=== PATIENT | female | born 1940 | race Caucasian/White ===

== ENCOUNTER → 2016-12-08 | Outpatient (CLI) | payer MEDICARE ==
[~2016-12-08] MED LIST: ASPIRIN81 M1 PO; ATIVAN0.5 MG PO; AZITHROMYCIN250 MG PO; Altace5 MG PO; CLOPIDOGREL75 MG PO; COMBIVENT1 AR1 IH; EFFEXOR75 MG PO; LASIX20 MG PO; LOPRESSOR25 MG PO; MEDROL DOSEPAK4 MG PO; MIRALAX17 GM/DOSE PO; NEXIUM20 MG PO; NEXIUM40 MG PO; NORVASC5 MG PO; RAMIPRIL10 MG PO; SLOW FE45 MG PO; SLOW RELEASE IR50 MG PO; SYMBICORT1 AER INH; TOPROL XL25 MG PO; VENLAFAXINE HYD75 M3 PO; VYTORIN 10 MG-21 TA1 PO; VYTORIN 10 MG-21 TA2 PO
== END | disposition home or self-care (01) ==
LOC: CT 15:51
DX: J43.9 Emphysema, unspecified (principal); K44.9 Diaphragmatic hernia without obstruction or gangrene; I70.0 Atherosclerosis of aorta; M47.896 Other spondylosis, lumbar region; M41.86 Other forms of scoliosis, lumbar region; Z87.891 Personal history of nicotine dependence; Z95.5 Presence of coronary angioplasty implant and graft; Z90.49 Acquired absence of other specified parts of digestive tract

== ENCOUNTER → 2016-12-09 | Outpatient (CLI) | payer MEDICARE ==
[2016-12-09 11:36] LABS: BASO % 0.6 % (0.0-1.0); EOS # 0.3 10*3/uL (0.0-0.4); EOS % 5.4 % (1.0-4.0); HEMATOCRIT 31.5 % (37.0-47.0); HEMOGLOBIN 9.7 g/dl (12.0-16.0); LYMPH # 0.9 10*3/uL (1.3-4.4); MEAN CELL VOLUME 83.1 fl (81.0-99.0); MEAN CORPUSCULAR HGB 25.6 pg (27.0-31.0); MEAN CORPUSCULAR HGB CONC 30.8 g/dl (33.0-37.0); MEAN PLATELET VOLUME 9.6 fl (9.6-12.3); MONO # 0.5 10*3/uL (0.1-1.0); NEUT # 3.3 10*3/uL (2.3-7.9); NEUT % 65.6 % (47.0-73.0); PLATELET COUNT AUTOMATED 310 10*3/uL (130-400); RED BLOOD COUNT 3.79 10*6/uL (4.10-5.10); RED CELL DISTRI WIDTH 14.4 % (0-14.5)
[2016-12-09 12:14] LABS: ALBUMIN 3.3 gm/dl (3.1-4.5); ALKALINE PHOSPHATASE 102 U/L (45-117); BILIRUBIN, TOTAL 0.1 mg/dl (0.2-1.0); BUN 12 mg/dl (7-24); CARBON DIOXIDE 27 mmol/L (21-32); CHLORIDE 104 mmol/L (98-107); CHOLESTEROL 173 mg/dL (<200); EST GLOM FILT AFRICAN AMERICAN > 60 ml/min; GLUCOSE 100 mg/dL (65-99); HDL CHOLESTEROL 69 mg/dl (40-60); LDL CHOLESTEROL 83 mg/dL (9-159); SGOT/AST 11 IU/L (3-35); SGPT/ALT 18 U/L (12-78); SODIUM 139 mmol/L (136-145); TOTAL PROTEIN 6.6 gm/dL (6.4-8.2); TRIGLYCERIDES 103 mg/dl (<150); VLDL CHOLESTEROL 21 mg/dL (6-40)
== END | disposition home or self-care (01) ==
LOC: LAB 11:09
PROVIDERS: Internal Medicine
DX: I10 Essential (primary) hypertension (principal); R53.83 Other fatigue; E55.9 Vitamin D deficiency, unspecified

== ENCOUNTER 2016-12-15 14:18 | Inpatient (IN) | payer MEDICARE ==
[~2016-12-15] VITALS: Ht 152.4 cm; Wt 97.2 kg
--- NOTE | ~2016-12-15 | CON ---
[place], [place] REPORT OF CONSULTATION NAME: EKVON MENDOZA [facility] #: [id number] UNIT #: [id number] ROOM: 512 DOCTOR: BRITTANIE AMEZCUA MDSAMINA BIRTHDATE: [birth year] DOS: 12/22/2016 PULMONARY CONSULTATION, EVALUATION AND MANAGEMENT REASON FOR CONSULTATION: The consultation done for this patient for assessment of ongoing symptoms of shortness of breath assessment. HISTORY OF PRESENT ILLNESS: This is a 76-year-old white female who has been unknown to me from the past. The patient has been admitted under the care of the hospitalist service for chronic shortness of breath that was present for over 3 months. The symptoms worsened for this patient about 4 or 5 days prior to admission to the hospital. The patient's symptoms are also associated coughing at times with occasional sputum expectoration. The patient denies any symptoms of chest pain. She does have symptoms of wheezing intermittently as well. The patient has been admitted to the hospital since 12/15/2016. Cardiac workup was done for this patient for the assessment and management of current symptoms. The patient denies any symptoms of hemoptysis. She does complain of symptoms of tightness in the chest. REVIEW OF SYSTEMS: CONSTITUTIONAL: The patient rather denies symptoms of fever or chills. She does have symptoms of fatigue. Denies symptoms of fever or chills or any abnormal weight loss. EYES: Denies any burning, dryness, redness or discharge. ENT: No sore throat, hoarseness, otalgia, postnasal drainage. CARDIOVASCULAR: Denies anginal pain, edema or pain of the lower extremities. GASTROINTESTINAL: Denies dysphagia, nausea, vomiting, diarrhea, abdominal pain, hematemesis, melena, or hematochezia. GENITOURINARY: Denies dysuria, suprapubic pain, hematuria. MUSCULOSKELETAL: Denies acute joint pain, redness, or tenderness. SKIN: No lesions or rashes. CENTRAL NERVOUS SYSTEM: Denies dizziness, headache, diplopia, seizures or tingling sensation of the extremities. Remaining systems were reviewed with the patient, they were noted all negative. PAST MEDICAL HISTORY: 1. Reported as history of chronic obstructive pulmonary disease. 2. Coronary artery disease. 3. Chronic depression. 4. Hyperlipidemia. 5. Essential hypertension. PAST SURGICAL HISTORY: 1. Cataract extraction with lens implantation bilaterally. 2. Cholecystectomy. 3. Cardiac catheterization and coronary artery stent insertion. 4. Complete hysterectomy. SOCIAL HISTORY: The patient stated she is , has 2 children. Denies [place], [place] REPORT OF CONSULTATION NAME: KEVON MENDOZA UNIT #: [id number] ROOM: [facility] DOCTOR: SAMINA SOLIS MD BIRTHDATE: [birth year] history of alcohol or illicit drug use. Tobacco use noted since earlier age, 2 pack of cigarettes per day that was discontinued approximately in 2006. FAMILY HISTORY: Both parents have been , issue related to heart problem. Further details were not known by the patient. HOME MEDICATIONS: Noted use of Norvasc, aspirin, Symbicort, vitamin D3, Plavix, Colace, Xaria, Lasix, DuoNeb, iron pills, lorazepam, lovastatin, metoprolol tartrate, omeprazole, ramipril, tramadol, and Effexor. DRUG ALLERGIES: Reported allergy; 1. NIACIN. 2. PREVACID. 3. TOLNAFTATE. PHYSICAL EXAMINATION: GENERAL: This is a 76-year-old white female who has been currently sitting on the side of the bed without any distress at the time of the assessment. VITAL SIGNS: Her height was recorded by the nursing staff at the time of admission with height of 5 feet, weight was 97 kg, BMI 39.8. Vital signs showed the temperature of the patient noted normal in the last 3 days, respiratory rate range between 18-20, heart rate 64-68, blood pressure 120/76 to 118/67. Pulse oxygen saturation on 2 liters nasal cannula 98% saturation recorded. HEENT: Moderate severe obesity. Head was atraumatic. Eyes nonicterus. Decreased posterior pharyngeal space was noted with high tongue base and crowding of soft tissue structures. CARDIOVASCULAR: S1, S2 audible. LUNGS: Noted with general reduction in the breath sounds without any active wheezing or crackles at the present time. ABDOMEN: Soft, obese, nontender. EXTREMITIES: The patient showed no edema at the present time. CENTRAL NERVOUS SYSTEM: Cranial nerves 2-12 intact. No focal deficit. MUSCULOSKELETAL: No joint pain or deformities. SKIN: Does not show any lesions or rashes. LABORATORY DATA: The patient's CBC on admission of 12/15/2016, hemoglobin 9.2, hematocrit 29.0 and platelet count were normal. WBC count was normal. The BMP of the patient on 12/15/2016 normal BUN and creatinine for this patient. ProBNP 17,862. Troponin was noted 0.087. Ultrasound of the bilateral lower extremity was also done on 12/15/2016, evidence of severe peripheral vascular disease was described. Further assessment of CT angiogram rather was advised. The second set of CK-MB, troponin of patient shows troponin 0.079. Normal CK and MB. The other repeated set on 12/19/2016 shows CPK 0.060. CBC on 12/19/2016 shows anemia, otherwise CBC remains normal. BMP of the patient that was done on 12/19/2016 shows normal BUN and creatinine. CBC that was done this morning shows hemoglobin 9.7, hematocrit 32.5, platelet count were normal. WBC count was normal. BMP of patient yesterday still shows normal BUN and creatinine and the other electrolytes. The chest x-ray that was done on admission 12/15/2016 shows hyperinflation without any acute pulmonary infiltration. Chest x-ray repeated again on 12/17/2016, shows the same findings. A 2-view chest x-ray of [place], [place] REPORT OF CONSULTATION NAME: KEVON MENDOZA UNIT #: [id number] ROOM: 512 DOCTOR: BRITTANIE AMEZCUA MD,[facility] BIRTHDATE: [birth year] the patient on 12/21/2016, shows similar finding without any acute abnormal pulmonary process. CT scan of the chest that was also completed previously 12/08/2016, was reviewed, shows evidence of small area of atelectasis, which was present in the right middle lobe as well as in the right upper lobe. There was no acute other abnormalities in the lungs such as abnormal lung masses or nodules. The echocardiogram for the patient, which was done on 12/15/2016, shows evidence of [id number] mitral valve regurgitation. The patient normal left ventricular ejection fraction 55%. Lexiscan shows abnormal ischemic findings, which were described with reversible ischemia involving the anterior and apical for this patient with reed-infarction ischemia. Low normal overall left ventricular ejection fraction was also noted. IMPRESSION: 1. The patient has been currently admitted to the hospital and noted with symptoms of shortness of breath with finding consistent with acute congestive heart failure with diastolic dysfunction. 2. Coronary artery disease. Ischemia for this patient was noted in the myocardium with the stress testing for this patient significance was unknown for this patient. The patient was also noted with finding of cwav-yw-jypgtold mitral valve regurgitation as well. Congestive heart failure would be considered diastolic dysfunction for this patient as well. 3. The patient with chronic obstructive pulmonary disease with acute exacerbation with gradual resolution. The patient ____ small areas of subsegmental atelectasis was noted in the right middle and the right upper lobe related to the possibility of mucus impaction. 4. Severe peripheral vascular disease. 5. The patient was noted with significant tobacco abuse in the past, which were discontinued 10 years ago. 6. Small pleural fluid was also described in the chest x-ray that may be related to the underlying congestive heart failure. PLAN OF TREATMENT: The patient continued to be managed with oral antibiotics, bronchodilators, oxygen supplementation, corticosteroids. Continue to maximize the cardiac management as well. Consider possible discharge home for this patient and when desired oral medication such as tapering prednisone, antibiotics and further outpatient assessment to make any further adjustments in medications of the respiratory problems accordingly. The patient already using the oxygen supplementation at bed time that should be continued. Current body habitus is strongly suggestive of obstructive sleep apnea disorder that should be assessed as an outpatient, a sleep evaluation. Thanks for allowing me to participate in the care of this patient. [place], [place] REPORT OF CONSULTATION NAME: KEVON MENDOZA UNIT #: [id number] ROOM: 512 DOCTOR: SAMINA SOLIS MD BIRTHDATE: [birth year] SAMINA GU MD CM:CONSTR:REPORT OF CONSULTATION 1034 12/23/16 0620 interface
--- NOTE | ~2016-12-15 | PR ---
[place], [place] PROGRESS NOTE NAME: KEVON MENDOZA UNIT #: [id number] ROOM: 512 DOCTOR: MAXIME MADRID MD BIRTHDATE: [birth year] DOS: 12/17/2016 CARDIOLOGY PROGRESS NOTE SUBJECTIVE: The patient was seen at her bedside today, 12/17/2016, for followup of dyspnea and possible heart failure. She is a 76-year-old woman with chronic dyspnea who states that she developed worsening in her chronic shortness of breath in the last several days. She does admit that she has gained about 20 pounds in the last 3-4 months. In the hospital, she was diuresed and her fluid balance is negative by about 3 liters since admission. Nonetheless, she still feels dyspneic. PAST HISTORY: Includes: 1. Coronary artery disease, status post 2 stents in the past. 2. Former cigarette abuse. 3. Chronic obstructive pulmonary disease. 4. History of hyperlipidemia. 5. History of essential hypertension. PHYSICAL EXAMINATION: GENERAL: Today, she is an overweight white female who is awake, alert and oriented. VITAL SIGNS: Pulse is 60 and regular, blood pressure is 125/63. She is afebrile. NECK: Supple. She has no jugular distention or hepatojugular reflux. Carotids are full. LUNGS: Respirations are slightly labored at rest. She does have expiratory prolongation with scattered wheezes bilaterally. HEART: Regular rhythm with an S4 gallop. Heart tones are distant. ABDOMEN: Soft and normoactive. EXTREMITIES: Showed no edema. LABORATORY DATA: I agreed that she probably was somewhat fluid overloaded on admission, but she appears to be euvolemic now. Her continued shortness of breath, most likely is due to an exacerbation of her underlying lung disease. I would treat her more aggressively for her lung problem. Given her history of coronary artery disease, we will still plan on doing a pharmacologic stress test on 12/19/2016 if she is still in the hospital at that time. I thank the hospitalist group for asking our advice regarding her care. [place], [place] PROGRESS NOTE NAME: KEVON MENDOZA UNIT #: [id number] ROOM: 512 DOCTOR: MAXIME MADRID MD BIRTHDATE: [birth year] MAXIME MADRID MD CM:PNEFREM [id number] [phone] MAXIME MADRID MD 12/17/162210 interface
--- NOTE | ~2016-12-15 | PR ---
[place], [place] PROGRESS NOTE NAME: KEVON MENDOZA UNIT #: [id number] ROOM: 512 DOCTOR: MAXIME MADRID MD BIRTHDATE: [birth year] DOS: 12/22/2016 CARDIOLOGY PROGRESS NOTE SUBJECTIVE: The patient was seen at her bedside today, 12/22/2016 for Cardiology followup. She tells me she still feels poorly. She has a minimally productive cough and some shortness of breath. She was seen by Pulmonary yesterday and their recommendations are pending. Currently, she is on antibiotics and bronchodilators along with her diuretics and cardiac medications. PHYSICAL EXAMINATION: VITAL SIGNS: Today, her pulse is 60 and regular, blood pressure is 120/73. She is afebrile. She weighs 97.2 kilograms with a body mass index of 41.8. HEENT: Normocephalic, atraumatic. Extraocular muscles are intact. Sclerae are clear. Pupils are equal, round and react to light. NECK: Supple. She has no jugular distention or hepatojugular reflux. Carotids are full. LUNGS: Respirations are unlabored. She does have a few scattered wheezes, especially anteriorly. She has no rales, presacral edema or chest wall tenderness. HEART: Has a regular rhythm with an S4 gallop, but no S3. She has a grade 2/6 systolic ejection murmur along the left sternal border. No diastolic murmurs are present. ABDOMEN: Obese, but otherwise benign. EXTREMITIES: Showed no edema. IMPRESSION: 1. Atherosclerotic heart disease. 2. Pharmacologic stress test, 12/19/2016 showed an apical infarction with reed-infarction ischemia, ejection fraction 52%. 3. Hypertension. 4. Hyperlipidemia. 5. Chronic obstructive pulmonary disease. PLAN: She appears to be euvolemic from a cardiac standpoint. We have determined that her ischemia should be managed medically. She is being managed also by the hospitalist and electronic publishing specialist for her respiratory problems. We will continue to follow her while she is in the hospital. I thank the hospitalist physicians for asking our advice regarding her care. [place], [place] PROGRESS NOTE NAME: KEVON MENDOZA UNIT #: [id number] ROOM: 512 DOCTOR: MAXIME MADRID MD BIRTHDATE: [birth year] MAXIME MADRID MD CM:PNTRANS [id number] MAXIME MADRID MD 12/23/16 0150 interface
--- NOTE | ~2016-12-15 | PR ---
[place], [place] PROGRESS NOTE NAME: KEVON MENDOZA [facility] #: [id number] UNIT #: [id number] ROOM: 512 DOCTOR: CLIFF RAMOS DO BIRTHDATE: [birth year] DOS: 12/19/2016 SUBJECTIVE: The patient was seen and evaluated on 12/19/2016. At this time, she has no new complaints. She states her breathing continues to improve; however, is not at baseline. She denies chest pain. She denies nausea or vomiting. No other new complaints. OBJECTIVE: VITAL SIGNS: Temperature is 98.0, pulse 86, respirations 18, blood pressure 146/60, pulse ox 98%. GENERAL: The patient is alert and oriented x 3, no acute distress. LUNGS: Diminished bilaterally, but clear. HEART: Regular rate and rhythm. ABDOMEN: Soft, nontender, nondistended. EXTREMITIES: No edema. ASSESSMENT: 1. Dyspnea on exertion. 2. Mild acute chronic obstructive pulmonary disease exacerbation. 3. Acute diastolic heart failure. This is resolving. 4. Echocardiogram on 12/15/2016 measured a normal ejection fraction. 5. Coronary artery disease with history of stent in the past. 6. Hypertension. 7. Hyperlipidemia. 8. Anxiety. 9. Ex-smoker. 10. History of throat cancer. PLAN: Continue current treatment with steroids and aerosol treatments. Continue Lasix. Stress test was done today. The nuclear portion of the test is pending. The patient will be kept again tonight. Possible discharge planning for tomorrow depending on the results of the stress test. CLIFF RAMOS DO CM:PNTRANS [id number] CLIFF RAMOS DO 12/19/16 1643 interface
--- NOTE | ~2016-12-15 | ST ---
[place], [place] EXERCISE STRESS TEST REPORT NAME[facility]: [id number] UNIT #: [id number] ROOM: 512 DOCTOR: MAXIME MADRID MD BIRTHDATE: [birth year] DOS: 12/19/2016 INDICATIONS: Dyspnea, history of coronary artery disease. PROCEDURE: The patient was given a rapid infusion of regadenoson 0.4 mg intravenously followed by a saline flush. She experienced dyspnea, but had no chest pain. The resting electrocardiogram showed sinus rhythm with PACs and PVCs. She had nonspecific T-wave flattening. With the infusion, no diagnostic changes occurred. Her resting heart rate of 82 chevy to 94. The resting blood pressure 116/68 fell to 114/64. Symptoms resolved spontaneously. Radionuclide was administered after the infusion of regadenoson. IMPRESSION: 1. Well tolerated infusion of regadenoson. 2. Radionuclide administered. Please see the separately created imaging report for further details of the patient's stress test results. MAXIME MADRID MD CM:STRESS:EXERCISE STRESS TEST REPORT [id number] MAXIME MADRID MD
--- NOTE | ~2016-12-15 | PR ---
[place], [place] PROGRESS NOTE NAME: KEVON MENDOZA UNIT #: [id number] ROOM: 512 DOCTOR: MAXIME MADRID MD BIRTHDATE: [birth year] DOS: 12/18/2016 SUBJECTIVE: The patient was seen at her bedside today, 12/18/2016, for followup of her dyspnea and possible heart failure. She states that despite the fact that she is urinating freely, she has continued to gain weight. Her breathlessness has not improved despite the fact that she is also now on Solu-Medrol and inhaled bronchodilators. She does admit that she has gained about 20 pounds in the last 3-4 months, but diuresis in the hospital has not yet given her substantial relief. PAST MEDICAL HISTORY: Includes; 1. Coronary artery disease, status post 2 stents in the past. 2. Former cigarette abuse. 3. Chronic obstructive pulmonary disease. 4. History of hyperlipidemia. 5. History of essential hypertension. PHYSICAL EXAMINATION: GENERAL: She is an overweight white female who is awake, alert and oriented. VITAL SIGNS: Pulse is 64 and regular, blood pressure is 126/60. She weighs 98.2 kg and has a body mass index of 42.3. NECK: Supple. She has mild jugular distention with hepatojugular reflux. Carotids are full. LUNGS: Respirations are unlabored at rest, but she does have decreased breath sounds at the bases with expiratory prolongation with scattered wheezes bilaterally, especially anteriorly. HEART: Regular rhythm with an S4 gallop. Heart tones are distant. There is no obvious murmur. ABDOMEN: Obese, but otherwise benign, without masses, organomegaly or bruits. EXTREMITIES: Showed no significant edema. IMPRESSION: 1. Dyspnea, etiology to be determined. This could represent heart failure, angina equivalent, obstructive lung disease, or combination of all 3. 2. History of essential hypertension. 3. History of hyperlipidemia. 4. Previous coronary artery disease. PLAN: I will increase her diuretics overnight. We will plan on doing a pharmacologic stress test tomorrow morning. Further management strategies will depend upon the results of her stress test. [place], [place] PROGRESS NOTE NAME: KEVON MENDOZA UNIT #: [id number] ROOM: 512 DOCTOR: MAXIME MADRID MD BIRTHDATE: [birth year] MAXIME MADRID MD CM:PNTRANS [id number] MAXIME MADRID MD 12/18/162235 interface
--- NOTE | ~2016-12-15 | PR ---
[place], [place] PROGRESS NOTE NAME: [facility]END[facility]ZA [id number] UNIT #: [id number] ROOM: 512 DOCTOR: MAXIME MADRID MD BIRTHDATE: [birth year] DOS: 12/19/2016 SUBJECTIVE: The patient was seen in the Cardiology Department today on 12/19/2016 just prior to a pharmacologic stress test. She was diuresed overnight, but continues to have significant breathlessness. She desaturates when she is removed from supplemental oxygen. She has no chest pain. PHYSICAL EXAMINATION: VITAL SIGNS: Her pulse is 86 and regular with an occasional premature beat, blood pressure 146/60. She is afebrile. She weighs 99 kilograms with a body mass index of 42.6. NECK: Supple. She has no jugular venous distention. CHEST: Clear with decreased breath sounds at the bases. HEART: Has a regular rhythm with an S4 gallop. Heart tones are distant. ABDOMEN: Obese. EXTREMITIES: Showed no edema. LABORATORY DATA: Her monitor today shows sinus rhythm with frequent PACs and PVCs. Overnight, she did have a 14-beat run of wide complex tachycardia. I could not determine if this was supraventricular tachycardia with aberrancy or ventricular tachycardia based on the images available. IMPRESSION: 1. Dyspnea, etiology to be determined. Differential diagnosis includes heart failure, angina equivalent, obstructive lung disease, or combination of the above. 2. History of essential hypertension, currently in good control. 3. History of hyperlipidemia. 4. Previously documented coronary artery disease. PLAN: The patient will undergo a pharmacologic myocardial perfusion study today. Further recommendations depend upon the results of her testing. MAXIME MADRID MD CM:PNTRANS [id number] MAXIME MADRID MD 12/19/16 1028 interface
[2016-12-15 14:22] VITALS: BP 106/60
[2016-12-15] MEDS ORDERED: AMLODIPINE BESYL5 MG PO (14:27)
[2016-12-15] MEDS ORDERED: LASIX20 MG PO (14:28)
[2016-12-15] MEDS ORDERED: COMBIVENT RESPIM4 GM INH (14:28)
[2016-12-15] MEDS ORDERED: ASPIRIN81 M1 PO (14:28)
[2016-12-15] MEDS ORDERED: LORAZEPAM0.5 MG PO (14:29)
[2016-12-15] MEDS ORDERED: TOPROL XL25 MG PO (14:29)
[2016-12-15] MEDS ORDERED: ZETIA10 MG PO (14:29)
[2016-12-15] MEDS ORDERED: ALTOPREV20 MG PO (14:29)
[2016-12-15] MEDS ORDERED: SYMBICORT1 AER INH (14:30)
[2016-12-15] MEDS ORDERED: PLAVIX75 M1 PO (14:30)
[2016-12-15] MEDS ORDERED: OMEPRAZOLE40 MG PO (14:30)
[2016-12-15] MEDS ORDERED: ALTACE10 MG PO (14:30)
[2016-12-15] MEDS ORDERED: ULTRAM50 MG PO (14:31)
[2016-12-15] MEDS ORDERED: DOC-Q-LACE100 MG PO (14:31)
[2016-12-15] MEDS ORDERED: VITAMIN D-32000 UNI1 PO (14:31)
[2016-12-15] MEDS ORDERED: VENLAFAXINE75 M1 PO (14:32)
[2016-12-15] MEDS ORDERED: IRON90 MG PO (14:32)
[2016-12-15 15:02] LABS: BASO % 0.4 % (0.0-1.0); EOS # 0.2 10*3/uL (0.0-0.4); HEMATOCRIT 29.8 % (37.0-47.0); HEMOGLOBIN 9.2 g/dl (12.0-16.0); LYMPH # 1.5 10*3/uL (1.3-4.4); LYMPH % 19.5 % (27.0-41.0); MEAN CELL VOLUME 82.8 fl (81.0-99.0); MEAN CORPUSCULAR HGB 25.6 pg (27.0-31.0); MEAN CORPUSCULAR HGB CONC 30.9 g/dl (33.0-37.0); MEAN PLATELET VOLUME 9.7 fl (9.6-12.3); MONO # 1.2 10*3/uL (0.1-1.0); MONO % 15.5 % (3.0-9.0); NEUT # 4.7 10*3/uL (2.3-7.9); NEUT % 61.1 % (47.0-73.0); PLATELET COUNT AUTOMATED 311 10*3/uL (130-400); WHITE BLOOD COUNT 7.7 10*3/uL (4.8-10.8)
[2016-12-15 15:22] LABS: BUN 14 mg/dl (7-24); CARBON DIOXIDE 27 mmol/L (21-32); CHLORIDE 103 mmol/L (98-107); EST GLOM FILT AFRICAN AMERICAN > 60 ml/min; GLUCOSE 89 mg/dL (65-99); POTASSIUM 4.4 mmol/L (3.5-5.1); SODIUM 136 mmol/L (136-145)
[2016-12-15 15:26] LABS: TROPONIN I 0.087 ng/ml (<0.045)
[2016-12-15 16:11] VITALS: BP 154/61
[2016-12-15 16:47] VITALS: BP 147/52
[2016-12-15 17:50] VITALS: BP 139/50
[2016-12-15 18:32] VITALS: BP 139/50
[2016-12-15 18:37] LABS: CKMB 1.7 ng/ml (0.5-3.6)
[2016-12-15 18:45] LABS: TROPONIN I 0.079 ng/ml (<0.045)
[2016-12-15 20:42] VITALS: BP 145/54
[2016-12-16 00:27] VITALS: BP 127/54
[2016-12-16 00:40] LABS: CKMB 1.5 ng/ml (0.5-3.6)
[2016-12-16 00:43] LABS: TROPONIN I 0.07 ng/ml (<0.045)
[2016-12-16 06:28] LABS: CKMB 1.7 ng/ml (0.5-3.6)
[2016-12-16 06:30] LABS: TROPONIN I 0.06 ng/ml (<0.045)
[2016-12-16 06:37] LABS: BASO % 0.6 % (0.0-1.0); EOS # 0.3 10*3/uL (0.0-0.4); EOS % 4.3 % (1.0-4.0); HEMOGLOBIN 8.9 g/dl (12.0-16.0); LYMPH # 1.4 10*3/uL (1.3-4.4); LYMPH % 19.5 % (27.0-41.0); MEAN CELL VOLUME 82.9 fl (81.0-99.0); MEAN CORPUSCULAR HGB 25.4 pg (27.0-31.0); MEAN CORPUSCULAR HGB CONC 30.7 g/dl (33.0-37.0); MEAN PLATELET VOLUME 10.3 fl (9.6-12.3); MONO % 13.7 % (3.0-9.0); NEUT # 4.3 10*3/uL (2.3-7.9); NEUT % 61.3 % (47.0-73.0); PLATELET COUNT AUTOMATED 302 10*3/uL (130-400)
[2016-12-16 06:40] LABS: ALBUMIN 3.2 gm/dl (3.1-4.5); BILIRUBIN, TOTAL 0.2 mg/dl (0.2-1.0); BUN 11 mg/dl (7-24); CARBON DIOXIDE 26 mmol/L (21-32); CHLORIDE 103 mmol/L (98-107); EST GLOM FILT AFRICAN AMERICAN > 60 ml/min; FREE T4 1.03 ng/dl (0.76-1.46); GLUCOSE 94 mg/dL (65-99); MAGNESIUM 2.2 mg/dL (1.5-2.1); PHOSPHOROUS 3.5 mg/dL (2.5-4.9); POTASSIUM 4.3 mmol/L (3.5-5.1); SGOT/AST 16 IU/L (3-35); SGPT/ALT 17 U/L (12-78); SODIUM 138 mmol/L (136-145); TOTAL PROTEIN 6.3 gm/dL (6.4-8.2)
[2016-12-16 06:44] LABS: PROTHROMBIN TIME 10.1 SECONDS (9.0-12.4)
[2016-12-16 06:47] LABS: ALKALINE PHOSPHATASE 88 U/L (45-117)
[2016-12-16 07:44] LABS: VITAMIN D, 25-HYDROXY 51.2 ng/mL (30-100)
[2016-12-16 07:45] LABS: FOLIC ACID > 24.00 ng/mL (>5.38)
[2016-12-16 08:00] VITALS: BP 138/56
[2016-12-16 12:00] VITALS: BP 126/50
[2016-12-16 16:00] VITALS: BP 133/53
[2016-12-16 20:00] VITALS: BP 143/93
[2016-12-17] VITALS: BP 136/53
[2016-12-17 06:31] LABS: BASO % 0.6 % (0.0-1.0); EOS # 0.3 10*3/uL (0.0-0.4); EOS % 4.4 % (1.0-4.0); HEMATOCRIT 30.4 % (37.0-47.0); HEMOGLOBIN 9.3 g/dl (12.0-16.0); LYMPH # 1.2 10*3/uL (1.3-4.4); LYMPH % 16.7 % (27.0-41.0); MEAN CELL VOLUME 82.4 fl (81.0-99.0); MEAN CORPUSCULAR HGB 25.2 pg (27.0-31.0); MEAN CORPUSCULAR HGB CONC 30.6 g/dl (33.0-37.0); MEAN PLATELET VOLUME 10.1 fl (9.6-12.3); MONO % 13.7 % (3.0-9.0); NEUT # 4.5 10*3/uL (2.3-7.9); NEUT % 64.2 % (47.0-73.0); PLATELET COUNT AUTOMATED 291 10*3/uL (130-400); RED BLOOD COUNT 3.69 10*6/uL (4.10-5.10); RED CELL DISTRI WIDTH 15.5 % (0-14.5)
[2016-12-17 07:00] LABS: BUN 10 mg/dl (7-24); CARBON DIOXIDE 29 mmol/L (21-32); CHLORIDE 103 mmol/L (98-107); EST GLOM FILT AFRICAN AMERICAN > 60 ml/min; GLUCOSE 97 mg/dL (65-99); POTASSIUM 4.5 mmol/L (3.5-5.1); SODIUM 138 mmol/L (136-145)
[2016-12-17 08:00] VITALS: BP 144/60
[2016-12-17 12:00] VITALS: BP 130/66
[2016-12-17 16:00] VITALS: BP 125/63
[2016-12-17 20:00] VITALS: BP 137/52
[2016-12-18 00:13] VITALS: BP 145/56
[2016-12-18 06:07] LABS: BASO % 0.4 % (0.0-1.0); EOS # 0.2 10*3/uL (0.0-0.4); EOS % 3.2 % (1.0-4.0); HEMATOCRIT 28.5 % (37.0-47.0); HEMOGLOBIN 8.8 g/dl (12.0-16.0); LYMPH # 1.1 10*3/uL (1.3-4.4); LYMPH % 15.4 % (27.0-41.0); MEAN CELL VOLUME 82.8 fl (81.0-99.0); MEAN CORPUSCULAR HGB 25.6 pg (27.0-31.0); MEAN CORPUSCULAR HGB CONC 30.9 g/dl (33.0-37.0); MEAN PLATELET VOLUME 10.4 fl (9.6-12.3); MONO # 0.9 10*3/uL (0.1-1.0); MONO % 12.6 % (3.0-9.0); NEUT # 4.9 10*3/uL (2.3-7.9); NEUT % 68.1 % (47.0-73.0); PLATELET COUNT AUTOMATED 271 10*3/uL (130-400); RED BLOOD COUNT 3.44 10*6/uL (4.10-5.10); RED CELL DISTRI WIDTH 15.9 % (0-14.5); WHITE BLOOD COUNT 7.2 10*3/uL (4.8-10.8)
[2016-12-18 06:30] LABS: BUN 9 mg/dl (7-24); CARBON DIOXIDE 27 mmol/L (21-32); CHLORIDE 101 mmol/L (98-107); EST GLOM FILT AFRICAN AMERICAN > 60 ml/min; GLUCOSE 94 mg/dL (65-99); POTASSIUM 4.2 mmol/L (3.5-5.1); SODIUM 135 mmol/L (136-145)
[2016-12-18 08:00] VITALS: BP 118/58
[2016-12-18 12:00] VITALS: BP 123/66
[2016-12-18 16:00] VITALS: BP 126/60
[2016-12-18 20:00] VITALS: BP 146/68
[2016-12-19 00:19] VITALS: BP 132/50
[2016-12-19 06:30] LABS: BASO % 0.1 % (0.0-1.0); HEMATOCRIT 29.3 % (37.0-47.0); HEMOGLOBIN 9.2 g/dl (12.0-16.0); IG # 0.1 10*3/uL (0.0-0.1); LYMPH # 0.8 10*3/uL (1.3-4.4); LYMPH % 11.1 % (27.0-41.0); MEAN CELL VOLUME 82.8 fl (81.0-99.0); MEAN CORPUSCULAR HGB CONC 31.4 g/dl (33.0-37.0); MEAN PLATELET VOLUME 10.2 fl (9.6-12.3); MONO # 0.9 10*3/uL (0.1-1.0); MONO % 11.5 % (3.0-9.0); NEUT # 5.8 10*3/uL (2.3-7.9); NEUT % 76.5 % (47.0-73.0); PLATELET COUNT AUTOMATED 318 10*3/uL (130-400); RED BLOOD COUNT 3.54 10*6/uL (4.10-5.10); WHITE BLOOD COUNT 7.6 10*3/uL (4.8-10.8)
[2016-12-19 07:02] LABS: BUN 13 mg/dl (7-24); CARBON DIOXIDE 30 mmol/L (21-32); CHLORIDE 98 mmol/L (98-107); EST GLOM FILT AFRICAN AMERICAN > 60 ml/min; GLUCOSE 109 mg/dL (65-99); POTASSIUM 4.8 mmol/L (3.5-5.1); SODIUM 134 mmol/L (136-145)
[2016-12-19 08:00] VITALS: BP 146/60
[2016-12-19 12:00] VITALS: BP 136/72
[2016-12-19 16:00] VITALS: BP 130/55
[2016-12-19 20:00] VITALS: BP 120/71
[2016-12-20 00:12] VITALS: BP 126/64; BP 162/86
[2016-12-20 06:15] LABS: BASO % 0.1 % (0.0-1.0); HEMATOCRIT 31.7 % (37.0-47.0); HEMOGLOBIN 9.7 g/dl (12.0-16.0); IG # 0.1 10*3/uL (0.0-0.1); LYMPH # 0.9 10*3/uL (1.3-4.4); LYMPH % 9.7 % (27.0-41.0); MEAN CELL VOLUME 84.5 fl (81.0-99.0); MEAN CORPUSCULAR HGB 25.9 pg (27.0-31.0); MEAN CORPUSCULAR HGB CONC 30.6 g/dl (33.0-37.0); MEAN PLATELET VOLUME 10.4 fl (9.6-12.3); MONO # 0.8 10*3/uL (0.1-1.0); MONO % 8.9 % (3.0-9.0); NEUT # 7.5 10*3/uL (2.3-7.9); NEUT % 80.6 % (47.0-73.0); PLATELET COUNT AUTOMATED 358 10*3/uL (130-400); RED BLOOD COUNT 3.75 10*6/uL (4.10-5.10); RED CELL DISTRI WIDTH 16.4 % (0-14.5); WHITE BLOOD COUNT 9.4 10*3/uL (4.8-10.8)
[2016-12-20 06:46] LABS: ALBUMIN 3.6 gm/dl (3.1-4.5); BILIRUBIN, TOTAL 0.2 mg/dl (0.2-1.0); MAGNESIUM 2.7 mg/dL (1.5-2.1); POTASSIUM 4.5 mmol/L (3.5-5.1)
[2016-12-20 08:00] VITALS: BP 124/60
[2016-12-20 12:00] VITALS: BP 142/68
[2016-12-20 16:00] VITALS: BP 123/46
[2016-12-20 20:00] VITALS: BP 118/62
[2016-12-21] VITALS: BP 108/68
[2016-12-21 08:00] VITALS: BP 122/72
[2016-12-21 08:22] LABS: BUN 22 mg/dl (7-24); CARBON DIOXIDE 29 mmol/L (21-32); CHLORIDE 98 mmol/L (98-107); EST GLOM FILT AFRICAN AMERICAN > 60 ml/min; GLUCOSE 70 mg/dL (65-99); POTASSIUM 4.2 mmol/L (3.5-5.1); SODIUM 138 mmol/L (136-145)
[2016-12-21 12:00] VITALS: BP 123/59
[2016-12-21 16:00] VITALS: BP 151/63
[2016-12-21 20:00] VITALS: BP 118/61
[2016-12-22] VITALS: BP 118/67
[2016-12-22 07:15] LABS: BASO % 0.1 % (0.0-1.0); EOS # 0.2 10*3/uL (0.0-0.4); EOS % 2.8 % (1.0-4.0); HEMATOCRIT 32.5 % (37.0-47.0); HEMOGLOBIN 9.7 g/dl (12.0-16.0); LYMPH # 1.9 10*3/uL (1.3-4.4); LYMPH % 21.3 % (27.0-41.0); MEAN CELL VOLUME 84.2 fl (81.0-99.0); MEAN CORPUSCULAR HGB 25.1 pg (27.0-31.0); MEAN CORPUSCULAR HGB CONC 29.8 g/dl (33.0-37.0); MEAN PLATELET VOLUME 10.6 fl (9.6-12.3); MONO # 1.1 10*3/uL (0.1-1.0); NEUT # 5.4 10*3/uL (2.3-7.9); NEUT % 62.3 % (47.0-73.0); PLATELET COUNT AUTOMATED 312 10*3/uL (130-400); RED BLOOD COUNT 3.86 10*6/uL (4.10-5.10); WHITE BLOOD COUNT 8.7 10*3/uL (4.8-10.8)
[2016-12-22 07:31] LABS: ALBUMIN 3.3 gm/dl (3.1-4.5); BUN 21 mg/dl (7-24); CARBON DIOXIDE 35 mmol/L (21-32); CHLORIDE 98 mmol/L (98-107); EST GLOM FILT AFRICAN AMERICAN > 60 ml/min; GLUCOSE 84 mg/dL (65-99); MAGNESIUM 2.8 mg/dL (1.5-2.1); SGOT/AST 50 IU/L (3-35); SGPT/ALT 106 U/L (12-78)
[2016-12-22 07:33] LABS: ALKALINE PHOSPHATASE 88 U/L (45-117); BILIRUBIN, TOTAL 0.2 mg/dl (0.2-1.0); TOTAL PROTEIN 6.3 gm/dL (6.4-8.2)
[2016-12-22 07:39] LABS: POTASSIUM 4.3 mmol/L (3.5-5.1); SODIUM 135 mmol/L (136-145)
[2016-12-22 08:00] VITALS: BP 120/73
[2016-12-22 12:00] VITALS: BP 132/68
[2016-12-22] MEDS ORDERED: SLOW RELEASE I159 MG PO (13:22)
[2016-12-22] MEDS ORDERED: SIMVASTATIN80 MG PO (13:22)
[2016-12-22] MEDS ORDERED: TEMAZEPAM15 M1 PO (13:22)
[2016-12-22] MEDS ORDERED: FUROSEMIDE40 MG PO (13:22)
[2016-12-22] MEDS ORDERED: Zestril,Prinivi40 MG PO (13:22)
[2016-12-22] MEDS ORDERED: PREDNISONE10 MG PO (13:22)
[2016-12-22] MEDS ORDERED: AVPAK AZITHROM250 M1 PO (13:22)
== END 2016-12-22 15:22 | disposition home health service (06) | DRG 291 ==
LOC: ED 14:18 → 5E 16:05 → EDHOLD 16:05 → 5E 16:30
PROVIDERS: Emergency Medicine; Internal Medicine; Internal Medicine Cardiovascular Disease
DX: I11.0 Hypertensive heart disease with heart failure (principal); J18.9 Pneumonia, unspecified organism; E44.0 Moderate protein-calorie malnutrition; D64.9 Anemia, unspecified; R00.1 Bradycardia, unspecified; I73.9 Peripheral vascular disease, unspecified; J44.1 Chronic obstructive pulmonary disease with (acute) exacerbation; J44.0 Chronic obstructive pulmonary disease with (acute) lower respiratory infection; I50.33 Acute on chronic diastolic (congestive) heart failure; I25.10 Atherosclerotic heart disease of native coronary artery without angina pectoris; F32.9 Major depressive disorder, single episode, unspecified; E78.5 Hyperlipidemia, unspecified; F41.9 Anxiety disorder, unspecified; K59.00 Constipation, unspecified; E66.01 Morbid (severe) obesity due to excess calories; Z79.82 Long term (current) use of aspirin; Z79.899 Other long term (current) drug therapy; Z88.8 Allergy status to other drugs, medicaments and biological substances; Z90.710 Acquired absence of both cervix and uterus; Z90.49 Acquired absence of other specified parts of digestive tract; Z82.49 Family history of ischemic heart disease and other diseases of the circulatory system; Z83.6 Family history of other diseases of the respiratory system; Z82.3 Family history of stroke; Z72.89 Other problems related to lifestyle; Z85.89 Personal history of malignant neoplasm of other organs and systems; Z87.891 Personal history of nicotine dependence; Z98.42 Cataract extraction status, left eye; Z98.41 Cataract extraction status, right eye; Z68.39 Body mass index [BMI] 39.0-39.9, adult

== ENCOUNTER 2017-01-04 15:25 | Inpatient (IN) | payer MEDICARE ==
[2017-01-04] VITALS (7 sets, daily range): BP systolic 71–140; BP diastolic 44–61
[~2017-01-04] VITALS: Ht 152.4 cm; Wt 90.3 kg
--- NOTE | ~2017-01-04 | PR ---
[place], [place] PROGRESS NOTE NAME: KEVON MENDOZA [facility] #: [id number] UNIT #: [id number] ROOM: 404 DOCTOR: MAXIME MADRID MD BIRTHDATE: [birth year] DOS: 01/07/2017 CARDIOLOGY PROGRESS NOTE SUBJECTIVE: The patient was seen at her bedside today, January 07, 2017, for followup of her atherosclerotic heart disease. She is a 76-year-old woman who was recently hospitalized with a non-ST elevation myocardial infarction. A post-event risk stratifying myocardial perfusion study on December 19, 2016, showed an apical myocardial infarction with a small area of distal anterior periinfarction ischemia. The study was felt to be abnormal, but fairly low risk and therefore she was managed medically. She presents to the hospital on this occasion with an acute upper GI bleed with an acute renal injury. She was found at the same time to have a mild elevation in troponin along with a dramatic change in her electrocardiographic findings with evidence for acute anterior and lateral ischemia or a non-ST elevation myocardial infarction. The patient's symptoms have since resolved. Her upper endoscopy showed only gastritis and she is being treated for this. I am still quite concerned about the fact that she did have significant EKG changes and an elevation in her troponin and I feel that further cardiac evaluation with catheterization is appropriate. I have discussed this with the patient and her daughter. Today, the patient feels very well. She wondered if she still needed to consider catheterization at this time. OBJECTIVE: VITAL SIGNS: On exam today, her pulse is 72 and regular, blood pressure 122/48. She is afebrile. She weighs 90.3 kilograms with a body mass index of 38.9. HEENT: Normocephalic and atraumatic. Extraocular muscles are intact. Sclerae are clear. Pupils are equal, round and react to light. The oral mucosa is moist. Tongue is midline. NECK: Supple. She has no jugular distention. Carotids are full. LUNGS: Respirations are unlabored. I heard no wheezes or rales. She had no presacral edema or chest wall tenderness. HEART: Had a regular rhythm. She had a fourth heart sound, but no third heart sound. ABDOMEN: Soft and normally active. It is nontender. EXTREMITIES: Showed no edema. Peripheral pulses were palpable in the feet. IMPRESSIONS: 1. An acute gastritis with nausea, vomiting and melanotic stools. The patient has stabilized and no severe bleeding site has been found. The patient does have gastritis. 2. Acute renal injury. This has improved since admission. Creatinine today is back at baseline at 0.97. 3. Recurrent non-ST elevation myocardial infarction 1 month after unstable angina/non-ST elevation CA in November of 2016. Her electrocardiogram now shows deep symmetric T-wave inversions in the anterolateral leads suggesting ongoing ischemia. PLAN: Since the patient is stabilizing from a GI and renal point of view, I [place], [place] PROGRESS NOTE NAME: KEVON MENDOZA UNIT #: [id number] ROOM: 404 DOCTOR: MAXIME MADRID MD BIRTHDATE: [birth year] think that we should strongly consider doing a heart catheterization. For now, we are treating her medically. In the morning, we will repeat her EKG. If it remains abnormal, I will suggest that she undergo catheterization. She has had her previous studies done at the [facility] and therefore she has requested that we transfer her there for further management, if catheterization is still indicated. We thank the hospitalist physicians for asking our advice regarding her care. MAXIME MADRID MD CM:PNTRANS [id number] MAXIME MADRID MD 01/08/17 0754 interface
--- NOTE | ~2017-01-04 | EKG ---
[place], [place] ELECTROCARDIOGRAM REPORT NAME: KEVON MENDOZA UNIT #: [id number] ROOM: [facility] DOCTOR: JULIUS ASHFORD,MAXIME BIRTHDATE: [birth year] DOS: 01/04/2017 TIME: 1538. FINDINGS: Normal sinus rhythm at rate of 65 with short runs of SVT, deep symmetric T-wave inversions in leads 1, 2, aVL and V3 through V6 consistent with anterolateral ischemia. Abnormal electrocardiogram. MAXIME MADRID MD CM:EKGRPT:ELECTROCARDIOGRAM REPORT [id number] MAXIME MADRID MD
--- NOTE | ~2017-01-04 | PR ---
[place], [place] PROGRESS NOTE NAME: KEVON MENDOZA [facility] #: [id number] UNIT #: [id number] [facility] DOCTOR: MAXIME MADRID MD BIRTHDATE: [birth year] DOS: 01/06/2017 CARDIOLOGY PROGRESS NOTE SUBJECTIVE: The patient was seen today January 06, 2017, in the Intensive Care Unit with her daughter at her bedside. In general, she feels better, although she states that when the nausea medications were off, she does still feel upset in her stomach. She denies any chest pain or dyspnea. She denies lightheadedness or syncope. She denies any palpitations. Her stools are still dark. Serial blood counts show that her hemoglobin continues to drop gradually. It was 9.8 on January 05 and today it is 8.9. White count has normalized 8400, platelet count remains 221,000. Troponin levels have normalized. PHYSICAL EXAMINATION: VITAL SIGNS: Today, her pulse is 53 and regular, blood pressure is 117/47. She is afebrile. NECK: Supple. She has no jugular distention. Carotids are full. LUNGS: Respirations are unlabored. Her chest is clear to auscultation and percussion. HEART: Has a regular rhythm with a fourth heart sound. I did not hear a third heart sound or significant murmur. The PMI is not displaced. ABDOMEN: Soft and normally active without masses, organomegaly or bruits. EXTREMITIES: Showed no edema. Peripheral pulses are easily palpated bilaterally. Her monitor continues to show deep symmetric T-wave inversions suggesting anterior ischemia. IMPRESSION: 1. Acute abdominal issues. The patient appears to be having an upper GI bleed associated with nausea and vomiting as well as melanotic stool, evaluation in progress. 2. Acute renal injury, improved. Creatinine peaked at 1.89 on admission. Creatinine this morning is 1.27. 3. Mild elevation in troponin with dramatic change in electrocardiographic findings suggesting acute anterior ischemia with non-ST elevation myocardial infarction. The patient did have a myocardial perfusion examination on December 19, 2016, which showed an apical myocardial infarction with a small area of distal anterior reed-infarction ischemia. The study was abnormal, but fairly low risk; however, her subsequent course indicates further myocardial damage. PLAN: The patient is scheduled to have upper endoscopy today. We will follow her clinically for the time being. Once her GI bleeding has been controlled and her renal functions have normalized, we will discuss catheterization and revascularization. Hopefully, this will be accomplished within the next week. We thank the hospitalist physicians for asking our advice regarding her care. [place], [place] PROGRESS NOTE NAME: KEVON MENDOZA UNIT #: [id number] ROOM: [facility] DOCTOR: MAXIME MADRID MD BIRTHDATE: [birth year] MAXIME MADRID MD CM:PNTRANS [phone] MAXIME MADRID MD 01/07/17 0059 interface
--- NOTE | ~2017-01-04 | EKG ---
[place], [place] ELECTROCARDIOGRAM REPORT NAME: KEVON MENDOZA UNIT #: [id number] ROOM: [facility] DOCTOR: JULIUS ASHFORD,MAXIME BIRTHDATE: [birth year] DOS: 01/05/2017 TIME: 0836 hours. FINDINGS: 1. Normal sinus rhythm at rate of 60 with first degree AV block. 2. Deep symmetric T-wave inversions noted in V2 through V6 as well as leads I, II, and aVF suggesting anterolateral ischemia. 3. Abnormal electrocardiogram. MAXIME MADRID MD CM:EKGRPT:ELECTROCARDIOGRAM REPORT [id number] MAXIME MADRID MD
--- NOTE | ~2017-01-04 | PR ---
[place], [place] PROGRESS NOTE NAME: KEVON MENDOZA LOCATED [facility]IN [facility] #: [id number] UNIT #: [id number] ROOM: 404 DOCTOR: MAXIME MADRID MD BIRTHDATE: [birth year] DOS: 01/08/2017 SUBJECTIVE: The patient was seen at her bedside today, 01/08/2017, for followup of her atherosclerotic heart disease and recent acute coronary syndrome. She is a 76-year-old woman who was hospitalized last month with a non-ST elevation myocardial infarction. Risk stratification included a pharmacologic myocardial perfusion study on 12/19/2016 which showed an apical infarction and a small area of distal anterior reed-infarction ischemia. This study was felt to be abnormal, but fairly low risk and therefore she was managed medically. She did well until this admission when she presented with an acute upper GI bleed as well as an acute renal injury. Her electrocardiogram on admission showed deep symmetric T-wave inversions in the anterior and lateral leads, which were not present a month ago. Her troponin did elevate slightly. The findings were consistent with a non-ST elevation myocardial infarction. The patient's symptoms have since resolved. She was found to have gastritis and that has improved. Her renal failure has resolved. Unfortunately, her electrocardiographic changes remain and because of this, I think that further cardiac assessment is appropriate at this time. The patient feels well today. Unfortunately, her electrocardiogram this morning still shows deep symmetric anterolateral T-wave inversions. PHYSICAL EXAMINATION: GENERAL: She is an overweight white female who is awake, alert and oriented. VITAL SIGNS: Pulse is 80 and regular. Blood pressure is 126/56. She is afebrile. NECK: Supple. She has no jugular distention. Carotids are full. LUNGS: Respirations are unlabored. Her chest is clear. HEART: Has a regular rhythm. She has a fourth heart sound, but no third heart sound or murmur. The PMI is not displaced. ABDOMEN: Soft and normoactive without masses, organomegaly or bruits. EXTREMITIES: Showed no edema. Peripheral pulses were palpable in the feet. IMPRESSION: 1. Admission with acute gastritis, nausea, vomiting and melanotic stools. The patient has stabilized and no further bleeding has occurred. Endoscopy showed gastritis. 2. Acute renal injury. This has improved with hydration since admission. Creatinine is back to baseline. Today's creatinine is 1.09. 3. Recurrent non-ST elevation myocardial infarction one month after an episode of unstable angina and non-ST elevation myocardial infarction in 11/2016. Her electrocardiogram now shows deep symmetric T-wave inversions in the anterolateral leads suggesting ongoing ischemia. PLAN: I discussed with the patient again my recommendation that she undergo catheterization. She states that she has had catheterization in the past at [facility], but preferred to be transferred there to have the procedure done. I told her that we could do it at [facility], but since she is more comfortable with [facility] I will defer to her wishes and ask the hospitalist team to arrange for the transfer. For now, [place], [place] PROGRESS NOTE NAME: KEVON MENDOZA UNIT #: [id number] ROOM: [facility] DOCTOR: MAXIME MADRID MD BIRTHDATE: [birth year] she will continue aspirin, metoprolol, isosorbide, and simvastatin for management of her coronary disease. We will be happy to follow up with her in the future as indicated. I thank the hospitalist physicians for asking our advice regarding her care. MAXIME MADRID MD CM:PNTRANS [phone] MAXIME MADRID MD 01/09/17 0243 interface
--- NOTE | ~2017-01-04 | EKG ---
[place], [place] ELECTROCARDIOGRAM REPORT NAME: KEVON MENDOZA UNIT #: [id number] ROOM: 404 DOCTOR: MAXIME MADRID MD BIRTHDATE: [birth year] DOS: 01/08/2017 TIME: 0803 a.m. Normal sinus rhythm at rate of 71. Deep symmetric T-wave inversion noted in multiple leads especially I, L and V2 through V6 consistent with anterolateral ischemia. Abnormal electrocardiogram. MAXIME MADRID MD CM:EKGRPT:ELECTROCARDIOGRAM REPORT [id number] MAXIME MADRID MD
--- NOTE | ~2017-01-04 | CON ---
[place], [place] REPORT OF CONSULTATION NAME: KEVON MENDOZA UNIT #: [id number] ROOM: [facility] DOCTOR: YASMANI POMPA MD BIRTHDATE: [birth year] DOS: 01/06/2017 HISTORY OF PRESENT ILLNESS: A 76-year-old patient who has presented with chief complaint of suspected GI bleed and initial H and H of 11 and 38, white blood cell of 22 at the time of admission with neutrophils of 86%. Comprehensive metabolic panel: BUN and creatinine 21 and 1.8. GFR of 31. Electrolytes balanced. Magnesium 2.8. Liver function test normal. Myoglobin of 109. Troponin slightly elevated to 0.52. CBC differential was reassessed and white blood cells 12, H and H of 9 and 32. Serum lactic acid was 2.8. CBC differential was reassessed. Blood cultures negative. Urine culture, no growth. CBC: White blood cells today normal at 8.4, H and H of 9 and 30. Platelet count being normal 221. MRSA negative. PAST MEDICAL HISTORY: History of diarrhea 2 years ago, colonoscopy, nausea, epigastric distress, renal insufficiency, history of COPD, obesity, congestive heart failure, coronary artery disease, hypertension. PAST SURGICAL HISTORY: Coronary artery stents, cholecystectomy, cataract, hysterectomy. SOCIAL HISTORY: Past smoker and alcohol user. FAMILY HISTORY: Noncontributory. ALLERGIES: NIACIN. REVIEW OF SYSTEMS: HEENT: Denies double vision, blurred vision. RESPIRATORY: Denies shortness of breath. CARDIOVASCULAR: Denies acute chest pain. DIGESTIVE SYSTEM: Dark stool, drop in H and H. PHYSICAL EXAMINATION: VITAL SIGNS: Stable. HEENT: Head normocephalic, nontraumatic. Mouth and buccal mucosa benign. NECK: Supple, no thyromegaly, no cervical lymphadenopathy. CHEST: Symmetric anatomy, equal expansion. No wheezes, no rhonchi. HEART: Normal sinus rhythm, no gallop, no murmur. ABDOMEN: Soft. No hepato-organomegaly, obese. Bowel sounds within normal limit. EXTREMITIES: No cyanosis, no pedal edema. NEUROLOGIC: Alert, oriented to time, place, and person. IMPRESSION: Drop in hemoglobin and hematocrit. The patient on aspirin and clopidogrel and ruling out contribution from anticoagulant antiplatelet activity; darkish stool, most likely secondary to contribution from ferrous sulfate. OTHER ADJUNCTIVE DIAGNOSES: As outlined above in the paragraph of past medical and surgical history. [place], [place] REPORT OF CONSULTATION NAME: KEVON MENDOZA UNIT #: [id number] ROOM: [facility] DOCTOR: ALETHA ASHFORD,YASMANI BIRTHDATE: [birth year] PLAN AND DISCUSSION: We will organize an EGD today. She has had a colonoscopy 2 years ago. YASMANI POMPA MD CM:CONSTR:REPORT OF CONSULTATION 1529 01/07/17 0753 interface
--- NOTE | ~2017-01-04 | O ---
[place], [place] OPERATIVE NOTE NAME: KEVON MENDOZA UNIT #: [id number] ROOM: [facility] DOCTOR: ALETHA ASHFORD,YASMANI BIRTHDATE: [birth year] DOS: 01/06/2017 INDICATIONS: The patient has presented with chief complaint of dropping H and H, epigastric distress, darkish stool. PROCEDURE: Today's procedure part of investigation is panendoscopy. PREMEDICATION: Versed and Diprivan. SCOPE: Olympus forward-viewing gastroscope Q10 video. REPORT: After putting the patient in the left lateral position and after application of lubricant to the scope, the scope was introduced. Thereafter, under direct visualization, I advanced through the length of esophagus without difficulty. Gastric pouch was entered. Gastritis seen. Duodenal bulb, second and third part within normal limits. The patient extubated after antral biopsy. Tolerated the procedure well. IMPRESSION: Mild gastritis. PLAN AND DISCUSSION: This patient is bleeding secondary to aspirin and Plavix effect. I have done the rectal examination and stool is consistent with iron effect darkness. We are going to feed her. We are going to follow on the H and H, transfusion if necessary and clinical reassessment. YASMANI POMPA MD CM:OPRECORD:OPERATIVE NOTE [phone] YASMANI POMPA MD 01/07/17 0756 interface
[~2017-01-04 15:25] MED LIST changes: +ALTACE10 MG PO; +ALTOPREV20 MG PO; +AMLODIPINE BESYL5 MG PO; +AVPAK AZITHROM250 M1 PO; +COMBIVENT RESPIM4 GM INH; +DOC-Q-LACE100 MG PO; +FUROSEMIDE40 MG PO; +IRON90 MG PO; +LORAZEPAM0.5 MG PO; +OMEPRAZOLE40 MG PO; +PLAVIX75 M1 PO; +PREDNISONE10 MG PO; +SIMVASTATIN80 MG PO; +SLOW RELEASE I159 MG PO; +TEMAZEPAM15 M1 PO; +ULTRAM50 MG PO; +VENLAFAXINE75 M1 PO; +VITAMIN D-32000 UNI1 PO; +ZETIA10 MG PO; +Zestril,Prinivi40 MG PO
[2017-01-04] MEDS ORDERED: AMINOPHYLLIN200 MG PO (15:58)
[2017-01-04] MEDS ORDERED: PYRIDIUM100 MG PO (15:58)
[2017-01-04] MEDS ORDERED: HYDROCODONE BIT1 T11 PO (15:58)
[2017-01-04 16:30] LABS: HEMATOCRIT 38.1 % (37.0-47.0); HEMOGLOBIN 11.3 g/dl (12.0-16.0); MEAN CELL VOLUME 88.6 fl (81.0-99.0); MEAN CORPUSCULAR HGB 26.3 pg (27.0-31.0); MEAN CORPUSCULAR HGB CONC 29.7 g/dl (33.0-37.0); MEAN PLATELET VOLUME 10.3 fl (9.6-12.3); PLATELET COUNT AUTOMATED 338 10*3/uL (130-400); RED CELL DISTRI WIDTH 19.1 % (0-14.5); WHITE BLOOD COUNT 22.1 10*3/uL (4.8-10.8)
[2017-01-04 16:41] LABS: INTERNATIONAL NORM RATIO 0.9 (2.0-3.5); PROTHROMBIN TIME 9.9 SECONDS (9.0-12.4)
[2017-01-04 16:47] LABS: ALBUMIN 3.4 gm/dl (3.1-4.5); BILIRUBIN, TOTAL 0.2 mg/dl (0.2-1.0); MAGNESIUM 2.8 mg/dL (1.5-2.1); POTASSIUM 4.1 mmol/L (3.5-5.1); TOTAL PROTEIN 6.3 gm/dL (6.4-8.2)
[2017-01-04 16:49] LABS: CKMB 1.5 ng/ml (0.5-3.6)
[2017-01-04 16:50] LABS: TROPONIN I 0.052 ng/ml (<0.045)
[2017-01-04 16:55] LABS: LYMPHOCYTE # 0.4 10*3/uL (1.3-4.4); MONOCYTE # 2.7 10*3/uL (0.1-1.0); NEUTROPHILS 86 % (47-73); TOTAL CELLS COUNTED 100 #CELLS
[2017-01-04 16:56] LABS: PLATELET SUFFICIENCY NORMAL (NORMAL)
[2017-01-04 19:04] LABS: BILIRUBIN NEGATIVE (NEGATIVE); BLOOD NEGATIVE (NEGATIVE); CLARITY SL CLOUDY (CLEAR); COLOR YELLOW (YELLOW); GLUCOSE NEGATIVE (NEGATIVE); KETONE TRACE (NEGATIVE); LEUKO ESTERASE NEGATIVE (NEGATIVE); NITRITE NEGATIVE (NEGATIVE); PH 5.5 (5.0-9.0); PROTEIN TRACE (NEGATIVE); SPECIFIC GRAVITY 1.025 (1.005-1.030); UROBILINOGEN 0.2 E.U./dl (0.2-1.0)
[2017-01-04 19:11] LABS: BACTERIA 2+; EPITHELIAL CELLS TNTC; HYALINE CAST TNTC; MUCOUS TRACE; RBC 0-2 rbc/hpf (0-2); URINE REFLEX COMMENT YES (NO)
[2017-01-04 19:20] LABS: LA>2 REFLEX 2 HR DRAW NOW
[2017-01-04 19:37] LABS: LA>2 RFLX FOLLOW UP AT 2 HRS 2.4 mmol/L (0.4-2.0)
[2017-01-04 21:30] LABS: LA>2 REFLEX 4 HR DRAW NOW
[2017-01-05] VITALS: BP 141/54
[2017-01-05 00:55] LABS: CKMB 2.2 ng/ml (0.5-3.6)
[2017-01-05 01:00] LABS: TROPONIN I 0.051 ng/ml (<0.045)
[2017-01-05 04:00] VITALS: BP 121/48; BP 139/92
[2017-01-05 06:25] LABS: BASO % 0.2 % (0.0-1.0); EOS % 0.3 % (1.0-4.0); HEMATOCRIT 32.6 % (37.0-47.0); HEMOGLOBIN 9.8 g/dl (12.0-16.0); IG # 0.1 10*3/uL (0.0-0.1); LYMPH # 1.4 10*3/uL (1.3-4.4); LYMPH % 10.8 % (27.0-41.0); MEAN CELL VOLUME 87.4 fl (81.0-99.0); MEAN CORPUSCULAR HGB 26.3 pg (27.0-31.0); MEAN CORPUSCULAR HGB CONC 30.1 g/dl (33.0-37.0); MEAN PLATELET VOLUME 10.5 fl (9.6-12.3); MONO # 1.1 10*3/uL (0.1-1.0); MONO % 8.8 % (3.0-9.0); NEUT # 9.9 10*3/uL (2.3-7.9); NEUT % 78.9 % (47.0-73.0); PLATELET COUNT AUTOMATED 263 10*3/uL (130-400); RED BLOOD COUNT 3.73 10*6/uL (4.10-5.10); RED CELL DISTRI WIDTH 18.9 % (0-14.5); WHITE BLOOD COUNT 12.6 10*3/uL (4.8-10.8)
[2017-01-05 06:36] LABS: CKMB 1.7 ng/ml (0.5-3.6); TROPONIN I 0.034 ng/ml (<0.045)
[2017-01-05 08:00] VITALS: BP 117/46
[2017-01-05 08:19] LABS: POTASSIUM 4.6 mmol/L (3.5-5.1)
[2017-01-05 09:51] LABS: POTASSIUM 4.7 mmol/L (3.5-5.1)
[2017-01-05 09:52] LABS: MAGNESIUM 2.6 mg/dL (1.5-2.1); PHOSPHOROUS 4.8 mg/dL (2.5-4.9)
[2017-01-05 09:53] LABS: ALBUMIN 2.9 gm/dl (3.1-4.5); TOTAL PROTEIN 5.6 gm/dL (6.4-8.2)
[2017-01-05 09:55] LABS: BILIRUBIN, TOTAL 0.2 mg/dl (0.2-1.0)
[2017-01-05 12:00] VITALS: BP 148/57
[2017-01-05 16:00] VITALS: BP 105/49
[2017-01-05 20:00] VITALS: BP 107/41
[2017-01-06] VITALS (8 sets, daily range): BP systolic 110–168; BP diastolic 32–56
[2017-01-06 05:49] LABS: POTASSIUM 4.5 mmol/L (3.5-5.1)
[2017-01-06 05:53] LABS: BASO % 0.5 % (0.0-1.0); EOS # 0.3 10*3/uL (0.0-0.4); HEMATOCRIT 30.2 % (37.0-47.0); HEMOGLOBIN 8.9 g/dl (12.0-16.0); IG # 0.1 10*3/uL (0.0-0.1); LYMPH % 23.8 % (27.0-41.0); MEAN CELL VOLUME 89.6 fl (81.0-99.0); MEAN CORPUSCULAR HGB 26.4 pg (27.0-31.0); MEAN CORPUSCULAR HGB CONC 29.5 g/dl (33.0-37.0); MEAN PLATELET VOLUME 10.6 fl (9.6-12.3); MONO # 0.9 10*3/uL (0.1-1.0); MONO % 10.7 % (3.0-9.0); NEUT # 5.1 10*3/uL (2.3-7.9); PLATELET COUNT AUTOMATED 221 10*3/uL (130-400); RED BLOOD COUNT 3.37 10*6/uL (4.10-5.10); RED CELL DISTRI WIDTH 18.9 % (0-14.5); WHITE BLOOD COUNT 8.4 10*3/uL (4.8-10.8)
[2017-01-07] VITALS (7 sets, daily range): BP systolic 100–170; BP diastolic 34–80
[2017-01-07 06:10] LABS: BASO % 0.2 % (0.0-1.0); BUN 8 mg/dl (7-24); CARBON DIOXIDE 25 mmol/L (21-32); CHLORIDE 115 mmol/L (98-107); EOS # 0.3 10*3/uL (0.0-0.4); EOS % 2.9 % (1.0-4.0); EST GLOM FILT AFRICAN AMERICAN > 60 ml/min; GLUCOSE 76 mg/dL (65-99); HEMATOCRIT 30.4 % (37.0-47.0); IG # 0.1 10*3/uL (0.0-0.1); LYMPH # 1.5 10*3/uL (1.3-4.4); LYMPH % 16.9 % (27.0-41.0); MEAN CELL VOLUME 90.2 fl (81.0-99.0); MEAN CORPUSCULAR HGB 26.7 pg (27.0-31.0); MEAN CORPUSCULAR HGB CONC 29.6 g/dl (33.0-37.0); MEAN PLATELET VOLUME 10.6 fl (9.6-12.3); MONO # 0.8 10*3/uL (0.1-1.0); MONO % 9.2 % (3.0-9.0); NEUT # 6.4 10*3/uL (2.3-7.9); NEUT % 70.1 % (47.0-73.0); PLATELET COUNT AUTOMATED 200 10*3/uL (130-400); POTASSIUM 4.3 mmol/L (3.5-5.1); RED BLOOD COUNT 3.37 10*6/uL (4.10-5.10); RED CELL DISTRI WIDTH 18.7 % (0-14.5); SODIUM 147 mmol/L (136-145); WHITE BLOOD COUNT 9.1 10*3/uL (4.8-10.8)
[2017-01-08] VITALS: BP 144/66
[2017-01-08 06:20] LABS: BASO % 0.2 % (0.0-1.0); EOS # 0.2 10*3/uL (0.0-0.4); EOS % 2.5 % (1.0-4.0); HEMATOCRIT 30.7 % (37.0-47.0); HEMOGLOBIN 9.2 g/dl (12.0-16.0); IG # 0.1 10*3/uL (0.0-0.1); LYMPH # 1.2 10*3/uL (1.3-4.4); LYMPH % 12.5 % (27.0-41.0); MEAN CORPUSCULAR HGB 26.7 pg (27.0-31.0); MONO # 0.9 10*3/uL (0.1-1.0); MONO % 9.1 % (3.0-9.0); NEUT # 7.3 10*3/uL (2.3-7.9); PLATELET COUNT AUTOMATED 202 10*3/uL (130-400); RED BLOOD COUNT 3.45 10*6/uL (4.10-5.10); RED CELL DISTRI WIDTH 19.1 % (0-14.5); WHITE BLOOD COUNT 9.8 10*3/uL (4.8-10.8)
[2017-01-08 06:32] LABS: ALBUMIN 2.6 gm/dl (3.1-4.5); BILIRUBIN, TOTAL 0.2 mg/dl (0.2-1.0); POTASSIUM 4.3 mmol/L (3.5-5.1); TOTAL PROTEIN 5.1 gm/dL (6.4-8.2)
[2017-01-08 08:00] VITALS: BP 126/56
[2017-01-08 12:00] VITALS: BP 144/64
[2017-01-08] MEDS ORDERED: METOPROLOL TART50 M1 PO (13:32)
[2017-01-08 16:00] VITALS: BP 106/44
[2017-01-08 17:22] LABS: BILIRUBIN NEGATIVE (NEGATIVE); BLOOD 1+ (NEGATIVE); CLARITY SL CLOUDY (CLEAR); COLOR YELLOW (YELLOW); GLUCOSE NEGATIVE (NEGATIVE); KETONE NEGATIVE (NEGATIVE); LEUKO ESTERASE 3+ (NEGATIVE); NITRITE POSITIVE (NEGATIVE); PROTEIN NEGATIVE (NEGATIVE); SPECIFIC GRAVITY <= 1.005 (1.005-1.030); UROBILINOGEN 0.2 E.U./dl (0.2-1.0)
[2017-01-08 17:28] LABS: BACTERIA 4+; URINE REFLEX COMMENT YES (NO); WBC TNTC wbc/hpf (0-5)
== END 2017-01-08 17:51 | disposition short-term general hospital (02) | DRG 377 ==
LOC: ED 15:25 → EDHOLD 18:04 → ICCU 18:04 → 4E 01-07 12:57
PROVIDERS: Family Medicine; Internal Medicine; Registered Nurse
PROC: 0DB68ZX Excision of Stomach, Via Natural or Artificial Opening Endoscopic, Diagnostic (ICD-10-PCS; principal; 2017-01-06)
DX: K92.2 Gastrointestinal hemorrhage, unspecified (principal); N17.0 Acute kidney failure with tubular necrosis; E87.2 Acidosis; E44.0 Moderate protein-calorie malnutrition; R65.10 Systemic inflammatory response syndrome (SIRS) of non-infectious origin without acute organ dysfunction; I50.32 Chronic diastolic (congestive) heart failure; I95.9 Hypotension, unspecified; D62 Acute posthemorrhagic anemia; D72.829 Elevated white blood cell count, unspecified; E78.5 Hyperlipidemia, unspecified; E66.01 Morbid (severe) obesity due to excess calories; K29.70 Gastritis, unspecified, without bleeding; I25.10 Atherosclerotic heart disease of native coronary artery without angina pectoris; F32.9 Major depressive disorder, single episode, unspecified; I25.2 Old myocardial infarction; Z87.891 Personal history of nicotine dependence; Z90.49 Acquired absence of other specified parts of digestive tract; Z90.710 Acquired absence of both cervix and uterus; Z95.5 Presence of coronary angioplasty implant and graft; Z98.49 Cataract extraction status, unspecified eye; Z82.49 Family history of ischemic heart disease and other diseases of the circulatory system; Z88.1 Allergy status to other antibiotic agents; Z79.82 Long term (current) use of aspirin; Z79.899 Other long term (current) drug therapy; Z68.37 Body mass index [BMI] 37.0-37.9, adult

== ENCOUNTER → 2017-01-23 | Outpatient (CLI) | payer MEDICARE ==
[~2017-01-23] MED LIST changes: +AMINOPHYLLIN200 MG PO; +HYDROCODONE BIT1 T11 PO; +METOPROLOL TART50 M1 PO; +PYRIDIUM100 MG PO
[2017-01-23 15:10] LABS: POTASSIUM 5.3 mmol/L (3.5-5.1)
== END | disposition home or self-care (01) ==
LOC: LAB 14:03
PROVIDERS: Registered Nurse
DX: I10 Essential (primary) hypertension (principal)

== ENCOUNTER → 2017-04-20 | Outpatient (CLI) | payer MEDICARE ==
[2017-04-20 13:35] LABS: CHOLESTEROL 196 mg/dL (<200); HDL CHOLESTEROL 52 mg/dl (40-60); LDL CHOLESTEROL 93 mg/dL (9-159); TRIGLYCERIDES 257 mg/dl (<150); VLDL CHOLESTEROL 51 mg/dL (6-40)
== END | disposition home or self-care (01) ==
LOC: LAB 12:51
PROVIDERS: Internal Medicine Cardiovascular Disease
DX: Z13.220 Encounter for screening for lipoid disorders (principal); Z79.899 Other long term (current) drug therapy

== ENCOUNTER → 2018-03-23 | Outpatient (CLI) | payer MEDICARE | END | disposition home or self-care (01) | LOC: RAD 14:08 | DX: M25.551 Pain in right hip (principal) ==

== ENCOUNTER → 2018-07-30 | Outpatient (CLI) | payer MEDICARE ==
[2018-07-30 12:31] LABS: BASO # 0.1 10*3/uL (0.0-0.1); BASO % 0.6 % (0.0-1.0); EOS # 0.4 10*3/uL (0.0-0.4); EOS % 5.3 % (1.0-4.0); HEMATOCRIT 38.1 % (37.0-47.0); HEMOGLOBIN 12.2 g/dl (12.0-16.0); LYMPH # 1.3 10*3/uL (1.3-4.4); LYMPH % 15.6 % (27.0-41.0); MEAN CELL VOLUME 96.9 fl (81.0-99.0); MEAN PLATELET VOLUME 10.2 fl (9.6-12.3); MONO # 0.9 10*3/uL (0.1-1.0); MONO % 11.1 % (3.0-9.0); NEUT # 5.3 10*3/uL (2.3-7.9); NEUT % 66.5 % (47.0-73.0); PLATELET COUNT AUTOMATED 287 10*3/uL (130-400); RED BLOOD COUNT 3.93 10*6/uL (4.10-5.10); RED CELL DISTRI WIDTH 12.7 % (0-14.5)
[2018-07-30 12:36] LABS: BILIRUBIN NEGATIVE (NEGATIVE); BLOOD NEGATIVE (NEGATIVE); CLARITY CLOUDY (CLEAR); COLOR YELLOW (YELLOW); GLUCOSE NEGATIVE (NEGATIVE); KETONE TRACE (NEGATIVE); LEUKO ESTERASE TRACE (NEGATIVE); NITRITE NEGATIVE (NEGATIVE); PH 5.5 (5.0-9.0); SPECIFIC GRAVITY 1.025 (1.005-1.030); UROBILINOGEN 0.2 E.U./dl (0.2-1.0)
[2018-07-30 12:47] LABS: ALBUMIN 3.5 gm/dl (3.1-4.5); CREATININE 1.2 mg/dL (0.55-1.02); PHOSPHOROUS 3.1 mg/dL (2.5-4.9); POTASSIUM 4.5 mmol/L (3.5-5.1)
[2018-07-30 13:09] LABS: EPITHELIAL CELLS TNTC
[2018-07-30 13:10] LABS: BACTERIA 3+
[2018-07-30 13:51] LABS: FERRITIN 109.2 ng/mL (10.0-291.0); PTH INTACT 95.7 pg/mL (18.5-88.0); VITAMIN D, 25-HYDROXY 49.9 ng/mL (30-100)
== END | disposition home or self-care (01) ==
LOC: LAB 11:56
PROVIDERS: Internal Medicine Nephrology
DX: D50.9 Iron deficiency anemia, unspecified (principal); N18.3 Chronic kidney disease, stage 3 (moderate); N25.81 Secondary hyperparathyroidism of renal origin; Z79.899 Other long term (current) drug therapy

== ENCOUNTER → 2019-01-30 | Outpatient (CLI) | payer MEDICARE ==
[~2019-01-30] MED LIST changes: +ANTIBIOTIC28.4 GM T; +AURYXIA210 MG PO; +CEPHALEXIN500 M1 PO; +LASIX40 MG PO; +OMEPRAZOLE20 M2 PO
[2019-01-30 10:45] LABS: BILIRUBIN NEGATIVE (NEGATIVE); BLOOD NEGATIVE (NEGATIVE); CLARITY CLEAR (CLEAR); COLOR YELLOW (YELLOW); GLUCOSE NEGATIVE (NEGATIVE); KETONE NEGATIVE (NEGATIVE); LEUKO ESTERASE NEGATIVE (NEGATIVE); NITRITE NEGATIVE (NEGATIVE); PH 5.5 (5.0-9.0); UROBILINOGEN 0.2 E.U./dl (0.2-1.0)
[2019-01-30 10:56] LABS: BASO % 0.4 % (0.0-1.0); EOS # 0.4 10*3/uL (0.0-0.4); EOS % 3.9 % (1.0-4.0); HEMATOCRIT 38.2 % (37.0-47.0); HEMOGLOBIN 11.9 g/dl (12.0-16.0); LYMPH # 1.2 10*3/uL (1.3-4.4); LYMPH % 13.4 % (27.0-41.0); MEAN CELL VOLUME 97.2 fl (81.0-99.0); MEAN CORPUSCULAR HGB 30.3 pg (27.0-31.0); MEAN CORPUSCULAR HGB CONC 31.2 g/dl (33.0-37.0); MEAN PLATELET VOLUME 10.5 fl (9.6-12.3); MONO # 0.9 10*3/uL (0.1-1.0); MONO % 10.1 % (3.0-9.0); NEUT # 6.4 10*3/uL (2.3-7.9); NEUT % 71.4 % (47.0-73.0); PLATELET COUNT AUTOMATED 293 10*3/uL (130-400); RED BLOOD COUNT 3.93 10*6/uL (4.10-5.10)
[2019-01-30 11:09] LABS: ALBUMIN 3.5 gm/dl (3.1-4.5); CREATININE 1.24 mg/dL (0.55-1.02); PHOSPHOROUS 3.5 mg/dL (2.5-4.9); POTASSIUM 3.6 mmol/L (3.5-5.1)
[2019-01-30 11:14] LABS: BACTERIA 1+; EPITHELIAL CELLS 21-30; RBC 0-2 rbc/hpf (0-2); WBC 0-2 wbc/hpf (0-5)
[2019-01-30 13:37] LABS: VITAMIN D, 25-HYDROXY 54.6 ng/mL (30-100)
[2019-01-30 13:38] LABS: FERRITIN 64.9 ng/mL (10.0-291.0); PTH INTACT 70.6 pg/mL (18.5-88.0)
== END | disposition home or self-care (01) ==
LOC: LAB 10:03
PROVIDERS: Internal Medicine Nephrology
DX: N25.81 Secondary hyperparathyroidism of renal origin (principal); D50.9 Iron deficiency anemia, unspecified; N18.3 Chronic kidney disease, stage 3 (moderate); Z79.899 Other long term (current) drug therapy

== ENCOUNTER → 2019-03-25 | Outpatient (CLI) | payer MEDICARE, MEDICAID | END | disposition home or self-care (01) | LOC: RAD 13:20 | DX: M47.816 Spondylosis without myelopathy or radiculopathy, lumbar region (principal); K59.00 Constipation, unspecified; G95.19 Other vascular myelopathies; M85.88 Other specified disorders of bone density and structure, other site; M41.56 Other secondary scoliosis, lumbar region; M51.36 Other intervertebral disc degeneration, lumbar region; I87.8 Other specified disorders of veins; M43.16 Spondylolisthesis, lumbar region ==

== ENCOUNTER → 2019-04-22 | Outpatient (CLI) | payer MEDICARE, MEDICAID | END | disposition home or self-care (01) | LOC: MRI 10:03 | DX: M48.061 Spinal stenosis, lumbar region without neurogenic claudication (principal); M51.36 Other intervertebral disc degeneration, lumbar region; M16.0 Bilateral primary osteoarthritis of hip; M51.26 Other intervertebral disc displacement, lumbar region ==

== ENCOUNTER 2019-10-14 17:38 | Emergency (ER) | payer MEDICARE, MEDICAID ==
[~2019-10-14] VITALS: Ht 154.9 cm; Wt 99.8 kg
[2019-10-14 17:41] VITALS: BP 125/46
[2019-10-14 18:17] LABS: BASO % 0.4 % (0.0-1.0); EOS # 0.4 10*3/uL (0.0-0.4); EOS % 4.9 % (1.0-4.0); HEMATOCRIT 36.9 % (37.0-47.0); HEMOGLOBIN 11.3 g/dl (12.0-16.0); LYMPH # 1.5 10*3/uL (1.3-4.4); MEAN CELL VOLUME 96.1 fl (81.0-99.0); MEAN CORPUSCULAR HGB 29.4 pg (27.0-31.0); MEAN CORPUSCULAR HGB CONC 30.6 g/dl (33.0-37.0); MEAN PLATELET VOLUME 10.7 fl (9.6-12.3); MONO # 1.2 10*3/uL (0.1-1.0); MONO % 14.3 % (3.0-9.0); NEUT # 5.1 10*3/uL (2.3-7.9); PLATELET COUNT AUTOMATED 264 10*3/uL (130-400); RED BLOOD COUNT 3.84 10*6/uL (4.10-5.10); RED CELL DISTRI WIDTH 13.2 % (0-14.5); WHITE BLOOD COUNT 8.2 10*3/uL (4.8-10.8)
[2019-10-14 18:29] LABS: ACT PARTIAL THROMBO TIME 24.4 SECONDS (20.0-32.1); INTERNATIONAL NORM RATIO 0.9 (2.0-3.5)
[2019-10-14 18:35] LABS: ALKALINE PHOSPHATASE 109 U/L (45-117); BUN 28 mg/dl (7-24); CHLORIDE 106 mmol/L (98-107); CREATININE 1.72 mg/dL (0.55-1.02); LIPASE 144 U/L (73-393); POTASSIUM 4.1 mmol/L (3.5-5.1); SGOT/AST 19 IU/L (3-35); SODIUM 138 mmol/L (136-145); TOTAL PROTEIN 6.5 gm/dL (6.4-8.2)
[2019-10-14 18:38] LABS: SGPT/ALT 21 U/L (12-78)
[2019-10-14 18:41] LABS: TROPONIN I < 0.015 ng/ml (<0.045)
== END 2019-10-14 19:01 | disposition short-term general hospital (02) ==
LOC: ED 17:38
PROVIDERS: Emergency Medicine
DX: I63.9 Cerebral infarction, unspecified (principal); I25.2 Old myocardial infarction; I25.10 Atherosclerotic heart disease of native coronary artery without angina pectoris; J44.9 Chronic obstructive pulmonary disease, unspecified; E66.01 Morbid (severe) obesity due to excess calories; E78.5 Hyperlipidemia, unspecified; I11.0 Hypertensive heart disease with heart failure; I50.9 Heart failure, unspecified; Z88.8 Allergy status to other drugs, medicaments and biological substances; Z79.899 Other long term (current) drug therapy; Z79.2 Long term (current) use of antibiotics; Z79.82 Long term (current) use of aspirin; Z90.49 Acquired absence of other specified parts of digestive tract; Z90.710 Acquired absence of both cervix and uterus

== ENCOUNTER → 2020-02-03 | Outpatient (CLI) | payer OTHER, MEDICAID ==
[2020-02-03 10:05] LABS: BASO % 0.4 % (0.0-1.0); EOS # 0.3 10*3/uL (0.0-0.4); EOS % 4.2 % (1.0-4.0); HEMATOCRIT 40.7 % (37.0-47.0); LYMPH # 1.3 10*3/uL (1.3-4.4); MEAN CELL VOLUME 92.3 fl (81.0-99.0); MEAN CORPUSCULAR HGB 28.1 pg (27.0-31.0); MEAN CORPUSCULAR HGB CONC 30.5 g/dl (33.0-37.0); MEAN PLATELET VOLUME 11.1 fl (9.6-12.3); MONO % 13.7 % (3.0-9.0); NEUT # 4.8 10*3/uL (2.3-7.9); NEUT % 64.2 % (47.0-73.0); PLATELET COUNT AUTOMATED 265 10*3/uL (130-400); RED BLOOD COUNT 4.41 10*6/uL (4.10-5.10); RED CELL DISTRI WIDTH 13.2 % (0-14.5); WHITE BLOOD COUNT 7.5 10*3/uL (4.8-10.8)
[2020-02-03 10:06] LABS: ALBUMIN 3.1 gm/dl (3.1-4.5); BUN 13 mg/dl (7-24); CHLORIDE 109 mmol/L (98-107); CREATININE 0.91 mg/dL (0.55-1.02); IRON 43 ug/dL (50-170); POTASSIUM 4.8 mmol/L (3.5-5.1); SODIUM 140 mmol/L (136-145); TOTAL IRON BINDING CAPACITY 282 ug/dl (250-450)
[2020-02-03 10:24] LABS: BACTERIA 3+; BILIRUBIN NEGATIVE (NEGATIVE); BLOOD 2+ (NEGATIVE); CLARITY SL CLOUDY (CLEAR); COLOR YELLOW (YELLOW); GLUCOSE NEGATIVE (NEGATIVE); KETONE NEGATIVE (NEGATIVE); LEUKO ESTERASE 1+ (NEGATIVE); MUCOUS 1+; NITRITE NEGATIVE (NEGATIVE); UROBILINOGEN 0.2 E.U./dl (0.2-1.0)
[2020-02-03 11:08] LABS: FERRITIN 116.7 ng/mL (10.0-291.0); VITAMIN D, 25-HYDROXY 54.2 ng/mL (30-100)
[2020-02-03 11:09] LABS: PTH INTACT 85.7 pg/mL (18.5-88.0)
== END | disposition home or self-care (01) ==
LOC: LAB 09:09
PROVIDERS: Internal Medicine Nephrology
DX: N18.3 Chronic kidney disease, stage 3 (moderate) (principal); N25.81 Secondary hyperparathyroidism of renal origin; D50.9 Iron deficiency anemia, unspecified; Z79.899 Other long term (current) drug therapy

== ENCOUNTER → 2020-02-26 | Outpatient (CLI) | payer OTHER, MEDICAID | END | disposition home or self-care (01) | LOC: CARD 07:30 | DX: I34.8 Other nonrheumatic mitral valve disorders (principal); I49.5 Sick sinus syndrome; I63.9 Cerebral infarction, unspecified; I25.118 Atherosclerotic heart disease of native coronary artery with other forms of angina pectoris; E78.5 Hyperlipidemia, unspecified; G45.9 Transient cerebral ischemic attack, unspecified ==

== ENCOUNTER → 2020-03-17 | Outpatient (CLI) | payer OTHER, MEDICAID ==
[~2020-03-17] MED LIST changes: +Lopressor25 MG PO
--- NOTE | 2020-03-17 07:00 | NUR ---
INFORMED SIGNED CONSENT OBTAINED FOR LEXISCAN STRESS TEST WITH DR BORGES. RESTING EKG SINUS BRADYCARDIA WITH PVC HR 53 BP 124/80. PULSE OX 94% LUNGS CLEAR. PT COMPLETED ONE MINUTE OF A LEXISCAN PROTOCOL WITH PT RECEIVING LEXISCAN 0.4MG IV OVER10 SECONDS. PVCS AND BIGEMNY SEEN WITH NON DIAGNOSTIC ST CHANGES. PT C/O SOB WITH INJECTION. PT IN STABLE CONDITION AWAITING NUCLEAR IMAGES.
== END | disposition home or self-care (01) ==
LOC: CARD 02:02
DX: I25.10 Atherosclerotic heart disease of native coronary artery without angina pectoris (principal); I49.8 Other specified cardiac arrhythmias; I10 Essential (primary) hypertension

== ENCOUNTER 2020-06-22 15:39 | Emergency (ER) | payer OTHER ==
[~2020-06-22] VITALS: Wt 81.6 kg
[2020-06-22 16:19] LABS: HEMATOCRIT 41.2 % (37.0-47.0); MEAN CELL VOLUME 87.5 fl (81.0-99.0); MEAN CORPUSCULAR HGB 27.2 pg (27.0-31.0); MEAN CORPUSCULAR HGB CONC 31.1 g/dl (33.0-37.0); MEAN PLATELET VOLUME 10.5 fl (9.6-12.3); PLATELET COUNT AUTOMATED 295 10*3/uL (130-400); RED BLOOD COUNT 4.71 10*6/uL (4.10-5.10); RED CELL DISTRI WIDTH 13.6 % (0-14.5); WHITE BLOOD COUNT 12.3 10*3/uL (4.8-10.8)
[2020-06-22 16:35] LABS: ALBUMIN 3.5 gm/dl (3.1-4.5); ALKALINE PHOSPHATASE 130 U/L (45-117); BUN 11 mg/dl (7-24); CHLORIDE 104 mmol/L (98-107); CREATININE 0.79 mg/dL (0.55-1.02); LIPASE 86 U/L (73-393); POTASSIUM 3.5 mmol/L (3.5-5.1); SGOT/AST 24 IU/L (3-35); SGPT/ALT 19 U/L (12-78); SODIUM 140 mmol/L (136-145); TOTAL PROTEIN 7.2 gm/dL (6.4-8.2)
[2020-06-22 16:36] LABS: TROPONIN I 0.028 ng/ml (<0.045)
[2020-06-22 16:37] LABS: ACT PARTIAL THROMBO TIME 25.3 SECONDS (20.0-32.1); BASOPHILS 1 % (0-1); BURR CELLS FEW; INTERNATIONAL NORM RATIO 1.1 (2.0-3.5); TOTAL CELLS COUNTED 100 #CELLS
[2020-06-22 16:38] LABS: PLATELET SUFFICIENCY NORMAL (NORMAL)
[2020-06-22 16:55] LABS: BILIRUBIN Negative (Negative); BLOOD 1+ (Negative); CLARITY Clear (Clear); COLOR Yellow (Yellow); GLUCOSE Negative (Negative); KETONE 1+ (Negative); LEUKO ESTERASE Negative (Negative); NITRITE Negative (Negative); SPECIFIC GRAVITY 1.025 (1.001-1.030)
[2020-06-22 17:19] LABS: EPITHELIAL CELLS 0-2; WBC 0-2 wbc/hpf (0-5)
[2020-06-22 20:50] VITALS: BP 174/78
== END 2020-06-22 21:13 | disposition short-term general hospital (02) ==
LOC: ED 15:39
PROVIDERS: Emergency Medicine
DX: I63.9 Cerebral infarction, unspecified (principal); I25.10 Atherosclerotic heart disease of native coronary artery without angina pectoris; J44.9 Chronic obstructive pulmonary disease, unspecified; I25.2 Old myocardial infarction; E66.01 Morbid (severe) obesity due to excess calories; I13.0 Hypertensive heart and chronic kidney disease with heart failure and stage 1 through stage 4 chronic kidney disease, or unspecified chronic kidney disease; N18.30 Chronic kidney disease, stage 3 unspecified; E78.5 Hyperlipidemia, unspecified; Z88.8 Allergy status to other drugs, medicaments and biological substances; Z79.899 Other long term (current) drug therapy; Z79.82 Long term (current) use of aspirin; Z87.891 Personal history of nicotine dependence

== ENCOUNTER 2020-08-11 13:56 | Emergency (ER) | payer OTHER ==
[2020-08-11 13:58] VITALS: BP 132/61
[2020-08-11 14:31] LABS: BASO # 0.1 10*3/uL (0.0-0.1); BASO % 0.5 % (0.0-1.0); EOS # 0.2 10*3/uL (0.0-0.4); EOS % 2.2 % (1.0-4.0); HEMATOCRIT 42.9 % (37.0-47.0); LYMPH # 1.1 10*3/uL (1.3-4.4); LYMPH % 11.4 % (27.0-41.0); MEAN CELL VOLUME 90.7 fl (81.0-99.0); MEAN CORPUSCULAR HGB 28.1 pg (27.0-31.0); MEAN PLATELET VOLUME 10.9 fl (9.6-12.3); MONO # 1.2 10*3/uL (0.1-1.0); MONO % 12.8 % (3.0-9.0); NEUT # 6.8 10*3/uL (2.3-7.9); NEUT % 72.7 % (47.0-73.0); PLATELET COUNT AUTOMATED 260 10*3/uL (130-400); RED BLOOD COUNT 4.73 10*6/uL (4.10-5.10); RED CELL DISTRI WIDTH 15.1 % (0-14.5); WHITE BLOOD COUNT 9.4 10*3/uL (4.8-10.8)
[2020-08-11 14:46] LABS: ALKALINE PHOSPHATASE 120 U/L (45-117); BUN 9 mg/dl (7-24); CHLORIDE 106 mmol/L (98-107); CREATININE 0.86 mg/dL (0.55-1.02); POTASSIUM 3.3 mmol/L (3.5-5.1); SGOT/AST 20 IU/L (3-35); SGPT/ALT 15 U/L (12-78); SODIUM 141 mmol/L (136-145); TOTAL PROTEIN 6.4 gm/dL (6.4-8.2)
== END 2020-08-11 15:53 ==
LOC: ED 13:56
PROVIDERS: Internal Medicine
DX: R11.0 Nausea (principal); Z88.8 Allergy status to other drugs, medicaments and biological substances; Z79.899 Other long term (current) drug therapy; Z79.82 Long term (current) use of aspirin; Z87.891 Personal history of nicotine dependence

== ENCOUNTER 2020-08-24 17:59 | Inpatient (IN) | payer OTHER ==
[~2020-08-24] VITALS: Ht 152.4 cm; Wt 70.0 kg
[2020-08-24 18:00] VITALS: BP 113/58
[2020-08-24 19:45] LABS: BASO % 0.5 % (0.0-1.0); EOS # 0.3 10*3/uL (0.0-0.4); EOS % 3.7 % (1.0-4.0); HEMATOCRIT 41.9 % (37.0-47.0); LYMPH # 1.1 10*3/uL (1.3-4.4); LYMPH % 13.1 % (27.0-41.0); MEAN CELL VOLUME 93.7 fl (81.0-99.0); MEAN CORPUSCULAR HGB 28.2 pg (27.0-31.0); MEAN CORPUSCULAR HGB CONC 30.1 g/dl (33.0-37.0); MEAN PLATELET VOLUME 11.2 fl (9.6-12.3); MONO # 0.9 10*3/uL (0.1-1.0); MONO % 11.1 % (3.0-9.0); NEUT # 5.9 10*3/uL (2.3-7.9); PLATELET COUNT AUTOMATED 295 10*3/uL (130-400); RED BLOOD COUNT 4.47 10*6/uL (4.10-5.10); RED CELL DISTRI WIDTH 15.4 % (0-14.5); WHITE BLOOD COUNT 8.3 10*3/uL (4.8-10.8)
[2020-08-24 20:05] LABS: ALBUMIN 2.9 gm/dl (3.1-4.5); ALKALINE PHOSPHATASE 116 U/L (45-117); BUN 34 mg/dl (7-24); CHLORIDE 106 mmol/L (98-107); CREATININE 1.52 mg/dL (0.55-1.02); POTASSIUM 5.9 mmol/L (3.5-5.1); SGOT/AST 24 IU/L (3-35); SGPT/ALT 14 U/L (12-78); SODIUM 134 mmol/L (136-145); TOTAL PROTEIN 6.8 gm/dL (6.4-8.2)
[2020-08-24 20:09] LABS: TROPONIN I < 0.015 ng/ml (<0.045)
[2020-08-24 20:45] LABS: BILIRUBIN Negative (Negative); BLOOD Negative (Negative); CLARITY Clear (Clear); COLOR Yellow (Yellow); GLUCOSE Negative (Negative); KETONE Negative (Negative); LEUKO ESTERASE 1+ (Negative); NITRITE Negative (Negative); SPECIFIC GRAVITY 1.015 (1.001-1.030); UROBILINOGEN 0.2 E.U./dl (0.0-1.0)
[2020-08-24 21:06] LABS: BACTERIA 1+
[2020-08-24 21:10] VITALS: BP 116/56
[2020-08-25 01:49] VITALS: BP 112/57
[2020-08-25 04:19] VITALS: BP 116/58
[2020-08-25 08:33] LABS: BASO % 0.5 % (0.0-1.0); EOS # 0.3 10*3/uL (0.0-0.4); HEMATOCRIT 41.4 % (37.0-47.0); LYMPH % 14.9 % (27.0-41.0); MEAN CELL VOLUME 91.4 fl (81.0-99.0); MEAN CORPUSCULAR HGB 27.6 pg (27.0-31.0); MEAN CORPUSCULAR HGB CONC 30.2 g/dl (33.0-37.0); MEAN PLATELET VOLUME 11.2 fl (9.6-12.3); MONO # 0.7 10*3/uL (0.1-1.0); MONO % 10.8 % (3.0-9.0); NEUT # 4.5 10*3/uL (2.3-7.9); NEUT % 68.9 % (47.0-73.0); PLATELET COUNT AUTOMATED 270 10*3/uL (130-400); RED BLOOD COUNT 4.53 10*6/uL (4.10-5.10); RED CELL DISTRI WIDTH 15.4 % (0-14.5); WHITE BLOOD COUNT 6.6 10*3/uL (4.8-10.8)
[2020-08-25 09:05] LABS: ALBUMIN 2.7 gm/dl (3.1-4.5); CREATININE 1.24 mg/dL (0.55-1.02); FREE T4 1.45 ng/dl (0.76-1.46); POTASSIUM 5.1 mmol/L (3.5-5.1); TOTAL PROTEIN 6.2 gm/dL (6.4-8.2)
[2020-08-25 09:10] LABS: THYROID STIM HORMONE (HS) 0.925 uIU/ml (0.358-4.75)
[2020-08-25 10:06] LABS: VITAMIN D, 25-HYDROXY 63.3 ng/mL (30-100)
[2020-08-25] MEDS ORDERED: WIXELA 100-501 EACH INH (12:22)
[2020-08-25] MEDS ORDERED: SINGULAIR10 M1 PO (12:27)
[2020-08-25] MEDS ORDERED: POTASSIUM CHLO20 ME3 PO (12:27)
[2020-08-25] MEDS ORDERED: PROMETHAZINE12.5 M3 PO (12:28)
[2020-08-25] MEDS ORDERED: AURYXIA210 MG PO (12:29)
[2020-08-25] MEDS ORDERED: DIGOX125 MCG PO (12:29)
[2020-08-25] MEDS ORDERED: LASIX20 MG PO (12:30)
[2020-08-25] MEDS ORDERED: DEXILANT60 M1 PO (12:30)
[2020-08-25] MEDS ORDERED: VENT7GM INH (12:33)
[2020-08-25] MEDS ORDERED: COL-RITE100 M1 PO (12:34)
[2020-08-25] MEDS ORDERED: XARE20MG PO (12:34)
[2020-08-25] MEDS ORDERED: ALDACTONE25 M1 PO (12:35)
[2020-08-25] MEDS ORDERED: NORVASC5 MG PO (12:36)
[2020-08-25 13:00] VITALS: BP 113/47
[2020-08-25 17:15] VITALS: BP 168/85
[2020-08-25 20:00] VITALS: BP 133/71
[2020-08-26] VITALS: BP 124/55
[2020-08-26 05:58] LABS: BUN 20 mg/dl (7-24); CHLORIDE 111 mmol/L (98-107); CREATININE 0.91 mg/dL (0.55-1.02); POTASSIUM 4.3 mmol/L (3.5-5.1); SODIUM 143 mmol/L (136-145)
[2020-08-26 08:00] VITALS: BP 120/57
[2020-08-26 12:00] VITALS: BP 107/48
[2020-08-26 14:52] VITALS: BP 124/52
[2020-08-26 16:00] VITALS: BP 110/52
[2020-08-26 20:00] VITALS: BP 112/76
[2020-08-27] VITALS: BP 114/40
[2020-08-27 07:25] LABS: BASO % 0.6 % (0.0-1.0); EOS # 0.2 10*3/uL (0.0-0.4); EOS % 3.3 % (1.0-4.0); HEMATOCRIT 39.1 % (37.0-47.0); LYMPH % 13.6 % (27.0-41.0); MEAN CELL VOLUME 89.5 fl (81.0-99.0); MEAN CORPUSCULAR HGB 27.7 pg (27.0-31.0); MEAN CORPUSCULAR HGB CONC 30.9 g/dl (33.0-37.0); MEAN PLATELET VOLUME 11.1 fl (9.6-12.3); MONO # 0.9 10*3/uL (0.1-1.0); MONO % 12.9 % (3.0-9.0); NEUT # 4.8 10*3/uL (2.3-7.9); NEUT % 68.6 % (47.0-73.0); PLATELET COUNT AUTOMATED 269 10*3/uL (130-400); RED BLOOD COUNT 4.37 10*6/uL (4.10-5.10); RED CELL DISTRI WIDTH 15.1 % (0-14.5)
[2020-08-27 07:50] LABS: BUN 13 mg/dl (7-24); CHLORIDE 110 mmol/L (98-107); CREATININE 0.86 mg/dL (0.55-1.02); SODIUM 143 mmol/L (136-145)
[2020-08-27 08:00] VITALS: BP 128/74
[2020-08-27] MEDS ORDERED: METOPROLOL SUCC50 M1 PO (10:48)
[2020-08-27] MEDS ORDERED: NYSTOP60 GM T (10:48)
== END 2020-08-27 15:24 | disposition other institution (70) | DRG 683 ==
LOC: ED 17:59 → 5E 20:34 → EDHOLD 20:34 → 5E 08-25 14:20
PROVIDERS: Internal Medicine; Nurse Practitioner Family; Social Worker Clinical; ADMIT Internal Medicine; ATTEND Internal Medicine
DX: N17.0 Acute kidney failure with tubular necrosis (principal); E44.0 Moderate protein-calorie malnutrition; E87.1 Hypo-osmolality and hyponatremia; I13.0 Hypertensive heart and chronic kidney disease with heart failure and stage 1 through stage 4 chronic kidney disease, or unspecified chronic kidney disease; I50.32 Chronic diastolic (congestive) heart failure; I38 Endocarditis, valve unspecified; I48.20 Chronic atrial fibrillation, unspecified; E87.5 Hyperkalemia; J44.9 Chronic obstructive pulmonary disease, unspecified; I25.10 Atherosclerotic heart disease of native coronary artery without angina pectoris; N18.31 Chronic kidney disease, stage 3a; G47.33 Obstructive sleep apnea (adult) (pediatric); E66.01 Morbid (severe) obesity due to excess calories; I25.5 Ischemic cardiomyopathy; Z20.828 Contact with and (suspected) exposure to other viral communicable diseases; E86.0 Dehydration; F32.9 Major depressive disorder, single episode, unspecified; Z86.73 Personal history of transient ischemic attack (TIA), and cerebral infarction without residual deficits; Z90.710 Acquired absence of both cervix and uterus; Z90.49 Acquired absence of other specified parts of digestive tract; Z79.899 Other long term (current) drug therapy; I25.2 Old myocardial infarction; Z95.5 Presence of coronary angioplasty implant and graft; Z87.891 Personal history of nicotine dependence; Z82.49 Family history of ischemic heart disease and other diseases of the circulatory system; Z88.8 Allergy status to other drugs, medicaments and biological substances; Z79.82 Long term (current) use of aspirin; Z79.1 Long term (current) use of non-steroidal anti-inflammatories (NSAID); Z79.51 Long term (current) use of inhaled steroids; Z68.30 Body mass index [BMI] 30.0-30.9, adult

== ENCOUNTER 2020-09-10 10:28 | Emergency (ER) | payer OTHER ==
[~2020-09-10] VITALS: Ht 152.4 cm; Wt 72.6 kg
[~2020-09-10 10:28] MED LIST changes: +ALDACTONE25 M1 PO; +COL-RITE100 M1 PO; +DEXILANT60 M1 PO; +DIGOX125 MCG PO; +METOPROLOL SUCC50 M1 PO; +NYSTOP60 GM T; +POTASSIUM CHLO20 ME3 PO; +PROMETHAZINE12.5 M3 PO; +SINGULAIR10 M1 PO; +VENT7GM INH; +WIXELA 100-501 EACH INH; +XARE20MG PO
[2020-09-10 11:25] LABS: BASO # 0.1 10*3/uL (0.0-0.1); BASO % 0.4 % (0.0-1.0); EOS # 0.2 10*3/uL (0.0-0.4); EOS % 1.6 % (1.0-4.0); HEMATOCRIT 42.5 % (37.0-47.0); LYMPH % 8.2 % (27.0-41.0); MEAN CELL VOLUME 91.2 fl (81.0-99.0); MEAN CORPUSCULAR HGB 28.3 pg (27.0-31.0); MEAN CORPUSCULAR HGB CONC 31.1 g/dl (33.0-37.0); MEAN PLATELET VOLUME 11.2 fl (9.6-12.3); MONO # 1.3 10*3/uL (0.1-1.0); MONO % 10.7 % (3.0-9.0); NEUT # 9.7 10*3/uL (2.3-7.9); NEUT % 78.1 % (47.0-73.0); PLATELET COUNT AUTOMATED 251 10*3/uL (130-400); RED BLOOD COUNT 4.66 10*6/uL (4.10-5.10); RED CELL DISTRI WIDTH 15.8 % (0-14.5); WHITE BLOOD COUNT 12.4 10*3/uL (4.8-10.8)
[2020-09-10 11:37] LABS: ACT PARTIAL THROMBO TIME 30.3 SECONDS (20.0-32.1); INTERNATIONAL NORM RATIO 1.3 (2.0-3.5)
[2020-09-10 11:46] LABS: ALBUMIN 2.9 gm/dl (3.1-4.5); ALKALINE PHOSPHATASE 111 U/L (45-117); BUN 19 mg/dl (7-24); CHLORIDE 104 mmol/L (98-107); CREATININE 1.23 mg/dL (0.55-1.02); POTASSIUM 5.2 mmol/L (3.5-5.1); SGOT/AST 17 IU/L (3-35); SGPT/ALT 14 U/L (12-78); SODIUM 135 mmol/L (136-145); TOTAL PROTEIN 6.4 gm/dL (6.4-8.2)
[2020-09-10 11:48] LABS: TROPONIN I < 0.015 ng/ml (<0.045)
[2020-09-10 13:13] LABS: BILIRUBIN Negative (Negative); BLOOD Negative (Negative); CLARITY Clear (Clear); COLOR Yellow (Yellow); GLUCOSE Negative (Negative); KETONE Negative (Negative); LEUKO ESTERASE 1+ (Negative); NITRITE Negative (Negative); UROBILINOGEN 0.2 E.U./dl (0.0-1.0)
[2020-09-10 13:27] LABS: BACTERIA 1+; EPITHELIAL CELLS 16-20; HYALINE CAST TNTC
[2020-09-10 19:37] VITALS: BP 115/66
== END 2020-09-10 21:00 | disposition short-term general hospital (02) ==
LOC: ED 10:28
PROVIDERS: Emergency Medicine
DX: R10.13 Epigastric pain (principal); Z20.828 Contact with and (suspected) exposure to other viral communicable diseases; E87.5 Hyperkalemia; R63.4 Abnormal weight loss

== ENCOUNTER → 2020-11-17 | Outpatient (CLI) | payer OTHER | END | disposition home or self-care (01) | LOC: CARD | PROVIDERS: ATTEND Internal Medicine Cardiovascular Disease | DX: I35.8 Other nonrheumatic aortic valve disorders (principal); R60.0 Localized edema ==

== ENCOUNTER 2021-01-27 10:17 | Inpatient (IN) | payer OTHER ==
[~2021-01-27] VITALS: Ht 152.4 cm; Wt 79.4 kg
[~2021-01-27 10:17] MED LIST changes: +BELBUCA150 MCG BC; +BREO ELLIPTA 11 EACH INH; +BUMETANIDE1 MG PO; +DECADRON6 M1 PO; +GABAPENTIN100 M2 PO; +MILK OF MA400 MG/51 PO; +MIRTAZAPINE7.5 MG PO; +VENTOLIN 02.5 MG/3 M INH
[2021-01-27 10:22] VITALS: BP 147/94
[2021-01-27 10:59] LABS: HEMATOCRIT 37.5 % (37.0-47.0); MEAN CORPUSCULAR HGB 26.2 pg (27.0-31.0); MEAN CORPUSCULAR HGB CONC 28.8 g/dl (33.0-37.0); MEAN PLATELET VOLUME 10.8 fl (9.6-12.3); PLATELET COUNT AUTOMATED 253 10*3/uL (130-400); RED BLOOD COUNT 4.12 10*6/uL (4.10-5.10); RED CELL DISTRI WIDTH 20.3 % (0-14.5); WHITE BLOOD COUNT 11.9 10*3/uL (4.8-10.8)
[2021-01-27 11:15] LABS: ALKALINE PHOSPHATASE 76 U/L (45-117); BUN 21 mg/dl (7-24); CHLORIDE 109 mmol/L (98-107); CREATININE 0.94 mg/dL (0.55-1.02); LIPASE 93 U/L (73-393); POTASSIUM 4.5 mmol/L (3.5-5.1); SGOT/AST 10 IU/L (3-35); SGPT/ALT 20 U/L (12-78); SODIUM 140 mmol/L (136-145); TOTAL PROTEIN 5.8 gm/dL (6.4-8.2); TROPONIN I 0.017 ng/ml (<0.045)
[2021-01-27 11:18] LABS: PLATELET SUFFICIENCY NORMAL (NORMAL); SCHISTOCYTES FEW; TOTAL CELLS COUNTED 100 #CELLS
[2021-01-27 13:41] VITALS: BP 162/68
[2021-01-27 14:45] LABS: BILIRUBIN Negative (Negative); BLOOD 1+ (Negative); CLARITY Cloudy (Clear); COLOR Yellow (Yellow); GLUCOSE Negative (Negative); KETONE Negative (Negative); LEUKO ESTERASE 1+ (Negative); NITRITE Negative (Negative); SPECIFIC GRAVITY 1.015 (1.001-1.030)
[2021-01-27 14:57] LABS: BACTERIA 3+; EPITHELIAL CELLS 21-30
[2021-01-27 15:57] VITALS: BP 141/67
[2021-01-27 16:57] VITALS: BP 145/64
[2021-01-27 19:31] VITALS: BP 140/70
[2021-01-27 20:00] VITALS: BP 150/56
[2021-01-27] MEDS ORDERED: LORAZEPAM0.5 MG PO (20:57)
[2021-01-28] VITALS: BP 131/42
[2021-01-28 08:00] VITALS: BP 150/50
[2021-01-28 12:00] VITALS: BP 138/68
[2021-01-28 15:50] VITALS: BP 128/54
[2021-01-28 20:00] VITALS: BP 119/50
[2021-01-29] VITALS: BP 144/59
[2021-01-29 08:00] VITALS: BP 164/57
[2021-01-29 12:00] VITALS: BP 135/57
[2021-01-29 16:00] VITALS: BP 147/57
[2021-01-29 20:00] VITALS: BP 143/60
[2021-01-30] VITALS: BP 129/40
[2021-01-30 08:00] VITALS: BP 138/57
[2021-01-30 12:00] VITALS: BP 155/75
[2021-01-30 16:00] VITALS: BP 143/59
[2021-01-30] MEDS ORDERED: IRON325 M1 PO (17:03)
[2021-01-30 20:00] VITALS: BP 145/50
[2021-01-31] VITALS: BP 138/56
[2021-01-31 08:00] VITALS: BP 134/60
[2021-01-31 12:00] VITALS: BP 152/68
[2021-01-31 16:00] VITALS: BP 120/51
[2021-01-31 20:00] VITALS: BP 121/48
[2021-02-01] VITALS: BP 127/65
[2021-02-01 08:00] VITALS: BP 124/68
[2021-02-01 12:00] VITALS: BP 134/50
== END 2021-02-01 16:30 | DRG 57 ==
LOC: ED 10:17 → EDHOLD 18:27 → 4E 18:27
PROVIDERS: Emergency Medicine; ADMIT Internal Medicine; ATTEND Internal Medicine
PROC: 5A09357 Assistance with Respiratory Ventilation, Less than 24 Consecutive Hours, Continuous Positive Airway Pressure (ICD-10-PCS; principal; 2021-01-29)
PROC: 5A09357 Assistance with Respiratory Ventilation, Less than 24 Consecutive Hours, Continuous Positive Airway Pressure (ICD-10-PCS; 2021-01-31)
PROC: 5A09357 Assistance with Respiratory Ventilation, Less than 24 Consecutive Hours, Continuous Positive Airway Pressure (ICD-10-PCS; 2021-02-01)
DX: G91.2 (Idiopathic) normal pressure hydrocephalus (principal); I48.21 Permanent atrial fibrillation; F33.1 Major depressive disorder, recurrent, moderate; K21.00 Gastro-esophageal reflux disease with esophagitis, without bleeding; F41.9 Anxiety disorder, unspecified; F51.01 Primary insomnia; R62.7 Adult failure to thrive; I25.10 Atherosclerotic heart disease of native coronary artery without angina pectoris; F41.1 Generalized anxiety disorder; Z79.01 Long term (current) use of anticoagulants; Z88.8 Allergy status to other drugs, medicaments and biological substances; Z90.49 Acquired absence of other specified parts of digestive tract; Z95.5 Presence of coronary angioplasty implant and graft; Z90.710 Acquired absence of both cervix and uterus; Z98.49 Cataract extraction status, unspecified eye; Z82.49 Family history of ischemic heart disease and other diseases of the circulatory system

== ENCOUNTER 2021-02-05 16:31 | Emergency (ER) | payer OTHER ==
[~2021-02-05] VITALS: Wt 83.5 kg
[~2021-02-05 16:31] MED LIST changes: +IRON325 M1 PO
[2021-02-05 16:40] VITALS: BP 120/68
== END 2021-02-05 23:45 ==
LOC: ED 16:31
DX: S16.1XXA Strain of muscle, fascia and tendon at neck level, initial encounter (principal); S49.92XA Unspecified injury of left shoulder and upper arm, initial encounter; Z88.8 Allergy status to other drugs, medicaments and biological substances; Z79.899 Other long term (current) drug therapy; Z90.49 Acquired absence of other specified parts of digestive tract; Z95.5 Presence of coronary angioplasty implant and graft; Z90.711 Acquired absence of uterus with remaining cervical stump; Z90.89 Acquired absence of other organs; Z87.891 Personal history of nicotine dependence; W05.0XXA Fall from non-moving wheelchair, initial encounter; Y93.89 Activity, other specified; Y92.128 Other place in nursing home as the place of occurrence of the external cause; Y99.8 Other external cause status

== ENCOUNTER → 2021-06-02 | Outpatient (CLI) | payer OTHER ==
[~2021-06-02] MED LIST changes: +BETAMETHASONE D60 M2; +CITALOPRAM10 MG PO; +HYDROXYZINE10 MG PO; +KENALOG 0.1%80 GM T; +NITROFURANTOIN100 M3 PO
== END | disposition home or self-care (01) ==
LOC: LAB 12:55
PROVIDERS: ATTEND Nurse Practitioner Family
DX: L29.9 Pruritus, unspecified (principal); L24.9 Irritant contact dermatitis, unspecified cause

== ENCOUNTER 2021-06-04 11:33 | Emergency (ER) | payer OTHER ==
[~2021-06-04] VITALS: Ht 152.4 cm; Wt 68.0 kg
[~2021-06-04 11:33] MED LIST changes: -BETAMETHASONE D60 M2; -CITALOPRAM10 MG PO; -HYDROXYZINE10 MG PO; -KENALOG 0.1%80 GM T; -NITROFURANTOIN100 M3 PO
[2021-06-04 11:42] VITALS: BP 141/51
[2021-06-04] MEDS ORDERED: LASIX40 MG PO (11:55)
[2021-06-04] MEDS ORDERED: HYDROXYZINE10 MG PO (11:56)
[2021-06-04] MEDS ORDERED: NITROFURANTOIN100 M3 PO (11:57)
[2021-06-04] MEDS ORDERED: CITALOPRAM10 MG PO (11:59)
[2021-06-04] MEDS ORDERED: BETAMETHASONE D60 M2 (12:01)
[2021-06-04] MEDS ORDERED: KENALOG 0.1%80 GM T (12:02)
== END 2021-06-04 13:50 | disposition left against medical advice (07) ==
LOC: ED 11:33
DX: R41.0 Disorientation, unspecified (principal); F41.9 Anxiety disorder, unspecified; Z53.21 Procedure and treatment not carried out due to patient leaving prior to being seen by health care provider

== ENCOUNTER → 2021-07-09 | Outpatient (CLI) | payer OTHER ==
[~2021-07-09] MED LIST changes: +BETAMETHASONE D60 M2; +CITALOPRAM10 MG PO; +HYDROXYZINE10 MG PO; +KENALOG 0.1%80 GM T; +NITROFURANTOIN100 M3 PO
[2021-07-09 15:53] LABS: BILIRUBIN Negative (Negative); BLOOD Negative (Negative); CLARITY Clear (Clear); COLOR Yellow (Yellow); GLUCOSE Negative (Negative); KETONE Negative (Negative); LEUKO ESTERASE 1+ (Negative); NITRITE Negative (Negative); UROBILINOGEN 0.2 E.U./dl (0.0-1.0)
[2021-07-09 16:32] LABS: BACTERIA 3+; EPITHELIAL CELLS 16-20; RBC 0-2 rbc/hpf (0-2)
== END | disposition home or self-care (01) ==
LOC: LAB 14:09
PROVIDERS: ATTEND Physician Assistant
DX: N39.0 Urinary tract infection, site not specified (principal)

== ENCOUNTER → 2021-11-08 | Outpatient (CLI) | payer OTHER ==
[~2021-11-08] MED LIST changes: +ADV 100/50 INH; +AMOXICILLIN500 M2 PO; +CEFTRIAXON2 GM/50 ML IV; +IRON325 M3 PO
[2021-11-08 12:41] LABS: BASO % 0.4 % (0.0-1.0); EOS # 0.2 10*3/uL (0.0-0.4); EOS % 2.4 % (1.0-4.0); HEMATOCRIT 30.3 % (37.0-47.0); LYMPH # 0.8 10*3/uL (1.3-4.4); LYMPH % 8.4 % (27.0-41.0); MEAN CELL VOLUME 85.4 fl (81.0-99.0); MEAN CORPUSCULAR HGB 24.5 pg (27.0-31.0); MEAN CORPUSCULAR HGB CONC 28.7 g/dl (33.0-37.0); MEAN PLATELET VOLUME 10.2 fl (9.6-12.3); MONO # 0.9 10*3/uL (0.1-1.0); NEUT # 7.7 10*3/uL (2.3-7.9); NEUT % 79.3 % (47.0-73.0); PLATELET COUNT AUTOMATED 345 10*3/uL (130-400); RED BLOOD COUNT 3.55 10*6/uL (4.10-5.10); RED CELL DISTRI WIDTH 18.2 % (0-14.5); WHITE BLOOD COUNT 9.8 10*3/uL (4.8-10.8)
[2021-11-08 13:02] LABS: BUN 13 mg/dl (7-24); CHLORIDE 108 mmol/L (98-107); CREATININE 0.84 mg/dL (0.55-1.02); POTASSIUM 4.6 mmol/L (3.5-5.1); SODIUM 141 mmol/L (136-145)
== END | disposition home or self-care (01) ==
LOC: LAB 12:10
PROVIDERS: ATTEND Physician Assistant
DX: A41.9 Sepsis, unspecified organism (principal); J18.9 Pneumonia, unspecified organism; K57.30 Diverticulosis of large intestine without perforation or abscess without bleeding

== ENCOUNTER → 2021-12-23 | Outpatient (CLI) | payer OTHER | END | disposition home or self-care (01) | LOC: MAMMO 12-21 13:30 → US 12-21 14:00 → MAMMO 00:10 | PROVIDERS: ATTEND Physician Assistant | DX: N63.21 Unspecified lump in the left breast, upper outer quadrant (principal); R92.2 Inconclusive mammogram; R92.8 Other abnormal and inconclusive findings on diagnostic imaging of breast ==

== ENCOUNTER 2022-01-07 13:58 | Inpatient (IN) | payer OTHER ==
[~2022-01-07] VITALS: Ht 152.4 cm; Wt 75.1 kg
[2022-01-07] VITALS (8 sets, daily range): BP systolic 110–126; BP diastolic 38–64
[2022-01-07 14:37] LABS: MEAN CELL VOLUME 93.4 fl (81.0-99.0); MEAN CORPUSCULAR HGB 27.4 pg (27.0-31.0); MEAN CORPUSCULAR HGB CONC 29.3 g/dl (33.0-37.0); MEAN PLATELET VOLUME 10.8 fl (9.6-12.3); NUCLEATED RED BLOOD CELL 0.1 % (0.0-0.0); PLATELET COUNT AUTOMATED 296 10*3/uL (130-400); RED BLOOD COUNT 2.12 10*6/uL (4.10-5.10); RED CELL DISTRI WIDTH 19.2 % (0-14.5); WHITE BLOOD COUNT 13.9 10*3/uL (4.8-10.8)
[2022-01-07 14:41] LABS: HEMATOCRIT 19.8 % (37.0-47.0); MANUAL DIFF REFLEX YES
[2022-01-07 14:45] LABS: ACT PARTIAL THROMBO TIME 35.3 SECONDS (20.0-32.1); INTERNATIONAL NORM RATIO 1.4 (2.0-3.5)
[2022-01-07 14:51] LABS: ALKALINE PHOSPHATASE 77 U/L (45-117); BUN 41 mg/dl (7-24); CHLORIDE 113 mmol/L (98-107); CREATININE 0.83 mg/dL (0.55-1.02); POTASSIUM 4.6 mmol/L (3.5-5.1); SGOT/AST 7 IU/L (3-35); SGPT/ALT 11 U/L (12-78); SODIUM 142 mmol/L (136-145); TOTAL PROTEIN 5.7 gm/dL (6.4-8.2)
[2022-01-07] MEDS ORDERED: ASPIRIN ADULT L81 M2 PO (14:52)
[2022-01-07] MEDS ORDERED: CLOPIDOGREL75 MG PO (14:52)
[2022-01-07] MEDS ORDERED: TRAMADOL HCL50 MG PO (14:53)
[2022-01-07] MEDS ORDERED: CITALOPRAM10 MG PO (14:53)
[2022-01-07] MEDS ORDERED: BUPRENORPHINE1 EAC2 TD (14:55)
[2022-01-07] MEDS ORDERED: DOCUSATE SOD100 MG PO (15:03)
[2022-01-07] MEDS ORDERED: ATARAX,VISTARIL10 MG PO (15:04)
[2022-01-07] MEDS ORDERED: MIRTAZAPINE7.5 MG PO (15:05)
[2022-01-07 15:06] LABS: BASOPHILS 1 % (0-1); PLATELET SUFFICIENCY NORMAL (NORMAL); POLYCHROMASIA SLIGHT; TOTAL CELLS COUNTED 100 #CELLS
[2022-01-07] MEDS ORDERED: METHOCARBAMOL500 M1 PO (15:06)
[2022-01-08] VITALS (8 sets, daily range): BP systolic 115–134; BP diastolic 34–54
[2022-01-08 06:02] LABS: BUN 43 mg/dl (7-24); CHLORIDE 113 mmol/L (98-107); CREATININE 0.69 mg/dL (0.55-1.02); IRON 249 ug/dL (50-170); POTASSIUM 4.4 mmol/L (3.5-5.1); SGOT/AST 11 IU/L (3-35); SGPT/ALT 9 U/L (12-78); SODIUM 142 mmol/L (136-145); TOTAL IRON BINDING CAPACITY 259 ug/dl (250-450)
[2022-01-08 06:07] LABS: ALKALINE PHOSPHATASE 67 U/L (45-117); TOTAL PROTEIN 4.9 gm/dL (6.4-8.2)
[2022-01-08 06:30] LABS: BASO # 0.1 10*3/uL (0.0-0.1); BASO % 0.4 % (0.0-1.0); EOS # 0.2 10*3/uL (0.0-0.4); EOS % 1.6 % (1.0-4.0); HEMATOCRIT 24.3 % (37.0-47.0); MEAN CORPUSCULAR HGB 29.7 pg (27.0-31.0); MEAN CORPUSCULAR HGB CONC 32.9 g/dl (33.0-37.0); MEAN PLATELET VOLUME 10.8 fl (9.6-12.3); MONO # 1.4 10*3/uL (0.1-1.0); MONO % 10.8 % (3.0-9.0); NEUT % 77.9 % (47.0-73.0); NUCLEATED RED BLOOD CELL 0.1 10*3/uL (0.0-0.0); NUCLEATED RED BLOOD CELL 0.4 % (0.0-0.0); PLATELET COUNT AUTOMATED 227 10*3/uL (130-400); RED BLOOD COUNT 2.69 10*6/uL (4.10-5.10); RED CELL DISTRI WIDTH 16.6 % (0-14.5); WHITE BLOOD COUNT 12.8 10*3/uL (4.8-10.8)
[2022-01-08 06:31] LABS: MEAN CELL VOLUME 90.3 fl (81.0-99.0)
[2022-01-08 09:56] LABS: FERRITIN 20.6 ng/mL (10.0-291.0)
[2022-01-09] VITALS: BP 132/45
[2022-01-09 05:54] LABS: CHLORIDE 112 mmol/L (98-107); CREATININE 0.68 mg/dL (0.55-1.02); POTASSIUM 4.1 mmol/L (3.5-5.1); SODIUM 141 mmol/L (136-145)
[2022-01-09 06:08] LABS: BASO % 0.2 % (0.0-1.0); EOS # 0.1 10*3/uL (0.0-0.4); EOS % 0.7 % (1.0-4.0); HEMATOCRIT 24.7 % (37.0-47.0); LYMPH # 0.7 10*3/uL (1.3-4.4); LYMPH % 5.4 % (27.0-41.0); MEAN CELL VOLUME 91.8 fl (81.0-99.0); MEAN CORPUSCULAR HGB 29.4 pg (27.0-31.0); MEAN PLATELET VOLUME 10.7 fl (9.6-12.3); MONO % 7.5 % (3.0-9.0); NEUT # 10.8 10*3/uL (2.3-7.9); NEUT % 85.4 % (47.0-73.0); NUCLEATED RED BLOOD CELL 0.2 % (0.0-0.0); PLATELET COUNT AUTOMATED 231 10*3/uL (130-400); RED BLOOD COUNT 2.69 10*6/uL (4.10-5.10); RED CELL DISTRI WIDTH 17.4 % (0-14.5); WHITE BLOOD COUNT 12.7 10*3/uL (4.8-10.8)
[2022-01-09 06:10] LABS: BUN 30 mg/dl (7-24)
[2022-01-09 08:00] VITALS: BP 171/53
[2022-01-09 12:00] VITALS: BP 156/49
[2022-01-09 13:02] LABS: BILIRUBIN Negative (Negative); BLOOD 1+ (Negative); CLARITY Cloudy (Clear); COLOR Yellow (Yellow); GLUCOSE Negative (Negative); KETONE Trace (Negative); LEUKO ESTERASE Trace (Negative); NITRITE Negative (Negative)
[2022-01-09 13:16] LABS: BACTERIA 2+; EPITHELIAL CELLS 21-30
[2022-01-09 16:00] VITALS: BP 158/60
[2022-01-09 20:00] VITALS: BP 157/50
[2022-01-10] VITALS (15 sets, daily range): BP systolic 120–177; BP diastolic 40–76
[2022-01-10 06:19] LABS: CHLORIDE 110 mmol/L (98-107); CREATININE 0.69 mg/dL (0.55-1.02); POTASSIUM 3.5 mmol/L (3.5-5.1); SODIUM 141 mmol/L (136-145)
[2022-01-10 06:20] LABS: BUN 19 mg/dl (7-24)
[2022-01-10 06:31] LABS: BASO % 0.1 % (0.0-1.0); EOS % 0.2 % (1.0-4.0); HEMATOCRIT 23.4 % (37.0-47.0); LYMPH # 0.9 10*3/uL (1.3-4.4); LYMPH % 7.8 % (27.0-41.0); MEAN CELL VOLUME 92.9 fl (81.0-99.0); MEAN CORPUSCULAR HGB 29.4 pg (27.0-31.0); MEAN CORPUSCULAR HGB CONC 31.6 g/dl (33.0-37.0); MEAN PLATELET VOLUME 10.8 fl (9.6-12.3); MONO # 1.5 10*3/uL (0.1-1.0); NEUT # 8.9 10*3/uL (2.3-7.9); NUCLEATED RED BLOOD CELL 0.3 % (0.0-0.0); PLATELET COUNT AUTOMATED 256 10*3/uL (130-400); RED BLOOD COUNT 2.52 10*6/uL (4.10-5.10); RED CELL DISTRI WIDTH 17.7 % (0-14.5); WHITE BLOOD COUNT 11.4 10*3/uL (4.8-10.8)
[2022-01-11] VITALS: BP 163/78
[2022-01-11 07:52] LABS: HEMATOCRIT 30.7 % (37.0-47.0); MEAN CELL VOLUME 93.3 fl (81.0-99.0); MEAN CORPUSCULAR HGB 29.5 pg (27.0-31.0); MEAN CORPUSCULAR HGB CONC 31.6 g/dl (33.0-37.0); MEAN PLATELET VOLUME 10.2 fl (9.6-12.3); NUCLEATED RED BLOOD CELL 0.1 10*3/uL (0.0-0.0); NUCLEATED RED BLOOD CELL 0.3 % (0.0-0.0); PLATELET COUNT AUTOMATED 265 10*3/uL (130-400); RED BLOOD COUNT 3.29 10*6/uL (4.10-5.10); RED CELL DISTRI WIDTH 17.2 % (0-14.5); WHITE BLOOD COUNT 15.1 10*3/uL (4.8-10.8)
[2022-01-11 07:54] LABS: MANUAL DIFF REFLEX YES
[2022-01-11 08:00] VITALS: BP 149/79
[2022-01-11 08:15] LABS: OVALOCYTES FEW; PLATELET SUFFICIENCY NORMAL (NORMAL); POLYCHROMASIA SLIGHT; TOTAL CELLS COUNTED 100 #CELLS
[2022-01-11 12:00] VITALS: BP 147/80
[2022-01-11 15:52] VITALS: BP 157/80
[2022-01-11 20:00] VITALS: BP 156/75
[2022-01-12] VITALS: BP 154/78
[2022-01-12 05:18] LABS: BUN 15 mg/dl (7-24); CHLORIDE 109 mmol/L (98-107); CREATININE 0.73 mg/dL (0.55-1.02); POTASSIUM 3.8 mmol/L (3.5-5.1); SODIUM 140 mmol/L (136-145)
[2022-01-12 07:05] LABS: HEMATOCRIT 32.4 % (37.0-47.0); MEAN CORPUSCULAR HGB CONC 31.5 g/dl (33.0-37.0); MEAN PLATELET VOLUME 10.1 fl (9.6-12.3); NUCLEATED RED BLOOD CELL 0.1 % (0.0-0.0); PLATELET COUNT AUTOMATED 261 10*3/uL (130-400); RED BLOOD COUNT 3.52 10*6/uL (4.10-5.10); RED CELL DISTRI WIDTH 16.6 % (0-14.5); WHITE BLOOD COUNT 13.4 10*3/uL (4.8-10.8)
[2022-01-12 07:27] LABS: MANUAL DIFF REFLEX YES
[2022-01-12 08:00] VITALS: BP 112/78
[2022-01-12 08:01] LABS: TOTAL CELLS COUNTED 100 #CELLS
[2022-01-12 08:02] LABS: OVALOCYTES FEW; PLATELET SUFFICIENCY NORMAL (NORMAL); POLYCHROMASIA SLIGHT; VACUOLATION OF NEUTROPHILS SLIGHT
[2022-01-12] MEDS ORDERED: Carafate1 GM PO (11:47)
[2022-01-12] MEDS ORDERED: XARE20MG PO (11:47)
[2022-01-12] MEDS ORDERED: CLOPIDOGREL75 MG PO (11:47)
[2022-01-12] MEDS ORDERED: CIPROFLOXACIN250 MG PO (11:47)
[2022-01-12 12:00] VITALS: BP 145/72
[2022-01-12 16:00] VITALS: BP 110/47
[2022-01-12 20:00] VITALS: BP 120/50
[2022-01-13] VITALS: BP 121/52
[2022-01-13 06:18] LABS: HEMATOCRIT 29.9 % (37.0-47.0); MEAN CELL VOLUME 92.9 fl (81.0-99.0); MEAN CORPUSCULAR HGB 29.2 pg (27.0-31.0); MEAN CORPUSCULAR HGB CONC 31.4 g/dl (33.0-37.0); MEAN PLATELET VOLUME 10.7 fl (9.6-12.3); NUCLEATED RED BLOOD CELL 0.2 % (0.0-0.0); PLATELET COUNT AUTOMATED 253 10*3/uL (130-400); RED BLOOD COUNT 3.22 10*6/uL (4.10-5.10); RED CELL DISTRI WIDTH 16.2 % (0-14.5); WHITE BLOOD COUNT 11.7 10*3/uL (4.8-10.8)
[2022-01-13 06:19] LABS: MANUAL DIFF REFLEX YES
[2022-01-13 06:21] LABS: ACT PARTIAL THROMBO TIME 28.2 SECONDS (20.0-32.1); INTERNATIONAL NORM RATIO 1.3 (2.0-3.5)
[2022-01-13 07:02] LABS: OVALOCYTES FEW; PLATELET SUFFICIENCY NORMAL (NORMAL); POLYCHROMASIA SLIGHT; TOTAL CELLS COUNTED 100 #CELLS
[2022-01-13 08:00] VITALS: BP 135/67
[2022-01-13 12:00] VITALS: BP 159/74
[2022-01-13 16:00] VITALS: BP 159/83
[2022-01-13 20:00] VITALS: BP 118/50
[2022-01-14] VITALS: BP 115/57
[2022-01-14 06:07] LABS: HEMATOCRIT 31.3 % (37.0-47.0); MEAN CELL VOLUME 92.1 fl (81.0-99.0); MEAN CORPUSCULAR HGB 29.4 pg (27.0-31.0); MEAN CORPUSCULAR HGB CONC 31.9 g/dl (33.0-37.0); MEAN PLATELET VOLUME 10.8 fl (9.6-12.3); PLATELET COUNT AUTOMATED 280 10*3/uL (130-400); RED CELL DISTRI WIDTH 16.5 % (0-14.5); WHITE BLOOD COUNT 11.6 10*3/uL (4.8-10.8)
[2022-01-14 06:19] LABS: MANUAL DIFF REFLEX YES
[2022-01-14 07:44] LABS: TOTAL CELLS COUNTED 100 #CELLS
[2022-01-14 07:45] LABS: PLATELET SUFFICIENCY NORMAL (NORMAL); POLYCHROMASIA SLIGHT
[2022-01-14 08:00] VITALS: BP 123/54
[2022-01-14 12:00] VITALS: BP 122/67
[2022-01-14] MEDS ORDERED: XARELTO20 M1 PO (12:39)
[2022-01-14 16:00] VITALS: BP 109/80
[2022-01-14] MEDS ORDERED: ZOFRAN4 MG PO (18:03)
[2022-01-15] MEDS ORDERED: IRON325 M3 PO (11:46)
== END 2022-01-14 18:54 | disposition home health service (06) | DRG 377 ==
LOC: ED 13:58 → EDHOLD 14:50 → 4E 14:50 → EDHOLD 15:19 → 4E 16:14
PROVIDERS: Emergency Medicine; Internal Medicine; Registered Nurse; ADMIT Emergency Medicine; ATTEND Emergency Medicine
PROC: 30233N1 Transfusion of Nonautologous Red Blood Cells into Peripheral Vein, Percutaneous Approach (ICD-10-PCS; 2022-01-07)
PROC: 5A09357 Assistance with Respiratory Ventilation, Less than 24 Consecutive Hours, Continuous Positive Airway Pressure (ICD-10-PCS; 2022-01-09)
PROC: 0DJ08ZZ Inspection of Upper Intestinal Tract, Via Natural or Artificial Opening Endoscopic (ICD-10-PCS; principal; 2022-01-10)
PROC: 5A09357 Assistance with Respiratory Ventilation, Less than 24 Consecutive Hours, Continuous Positive Airway Pressure (ICD-10-PCS; 2022-01-13)
DX: K29.71 Gastritis, unspecified, with bleeding (principal); E43 Unspecified severe protein-calorie malnutrition; I50.32 Chronic diastolic (congestive) heart failure; J96.11 Chronic respiratory failure with hypoxia; I13.0 Hypertensive heart and chronic kidney disease with heart failure and stage 1 through stage 4 chronic kidney disease, or unspecified chronic kidney disease; C50.912 Malignant neoplasm of unspecified site of left female breast; N18.31 Chronic kidney disease, stage 3a; D50.0 Iron deficiency anemia secondary to blood loss (chronic); E78.2 Mixed hyperlipidemia; I25.10 Atherosclerotic heart disease of native coronary artery without angina pectoris; J44.9 Chronic obstructive pulmonary disease, unspecified; G47.33 Obstructive sleep apnea (adult) (pediatric); I48.91 Unspecified atrial fibrillation; I73.9 Peripheral vascular disease, unspecified; F32.A Depression, unspecified; Z90.49 Acquired absence of other specified parts of digestive tract; Z90.710 Acquired absence of both cervix and uterus; Z86.73 Personal history of transient ischemic attack (TIA), and cerebral infarction without residual deficits; Z87.891 Personal history of nicotine dependence

== ENCOUNTER → 2022-01-18 | Outpatient (CLI) | payer OTHER ==
[~2022-01-18] MED LIST changes: +ASPIRIN ADULT L81 M2 PO; +ATARAX,VISTARIL10 MG PO; +BUPRENORPHINE1 EAC2 TD; +CIPROFLOXACIN250 MG PO; +Carafate1 GM PO; +DOCUSATE SOD100 MG PO; +METHOCARBAMOL500 M1 PO; +TRAMADOL HCL50 MG PO; +XARELTO20 M1 PO; +ZOFRAN4 MG PO
== END | disposition home or self-care (01) ==
LOC: RAD 01:15
PROVIDERS: ATTEND Physician Assistant
DX: N63.20 Unspecified lump in the left breast, unspecified quadrant (principal); R59.0 Localized enlarged lymph nodes; R92.8 Other abnormal and inconclusive findings on diagnostic imaging of breast

== ENCOUNTER 2022-02-13 06:26 | Emergency (ER) | payer OTHER ==
[~2022-02-13] VITALS: Ht 152.4 cm; Wt 68.0 kg
[~2022-02-13 06:26] MED LIST changes: +ASPIRIN ADULT L81 M1 PO; +CARAFATE1 G1 PO
[2022-02-13 06:28] VITALS: BP 140/71
== END 2022-02-13 09:32 | disposition home or self-care (01) ==
LOC: ED 06:26
DX: S72.002A Fracture of unspecified part of neck of left femur, initial encounter for closed fracture (principal); W18.39XA Other fall on same level, initial encounter; Y93.89 Activity, other specified; Y92.89 Other specified places as the place of occurrence of the external cause; Y99.8 Other external cause status

== ENCOUNTER → 2022-02-25 | Outpatient (CLI) | payer OTHER | END | disposition home or self-care (01) | LOC: RAD 03:32 | PROVIDERS: ATTEND Physician Assistant | DX: M41.86 Other forms of scoliosis, lumbar region (principal); M47.816 Spondylosis without myelopathy or radiculopathy, lumbar region; M85.88 Other specified disorders of bone density and structure, other site ==

== ENCOUNTER 2022-04-25 13:30 | Emergency (ER) | payer OTHER ==
[2022-04-25 14:17] LABS: HEMATOCRIT 34.8 % (37.0-47.0); MEAN CELL VOLUME 87.4 fl (81.0-99.0); MEAN CORPUSCULAR HGB 27.4 pg (27.0-31.0); MEAN CORPUSCULAR HGB CONC 31.3 g/dl (33.0-37.0); MEAN PLATELET VOLUME 10.4 fl (9.6-12.3); PLATELET COUNT AUTOMATED 278 10*3/uL (130-400); RED BLOOD COUNT 3.98 10*6/uL (4.10-5.10); RED CELL DISTRI WIDTH 14.2 % (0-14.5); WHITE BLOOD COUNT 12.9 10*3/uL (4.8-10.8)
[2022-04-25 14:19] LABS: MANUAL DIFF REFLEX YES
[2022-04-25 14:28] LABS: ACT PARTIAL THROMBO TIME 51.1 SECONDS (20.0-32.1); INTERNATIONAL NORM RATIO 1.5 (2.0-3.5)
[2022-04-25 14:40] LABS: ALKALINE PHOSPHATASE 83 U/L (45-117); BUN 16 mg/dl (7-24); CHLORIDE 105 mmol/L (98-107); CREATININE 1.06 mg/dL (0.55-1.02); LIPASE 80 U/L (73-393); POTASSIUM 4.1 mmol/L (3.5-5.1); SGOT/AST 9 IU/L (3-35); SGPT/ALT 10 U/L (12-78); SODIUM 136 mmol/L (136-145); TOTAL PROTEIN 6.2 gm/dL (6.4-8.2)
[2022-04-25 14:54] LABS: PLATELET SUFFICIENCY NORMAL (NORMAL); TOTAL CELLS COUNTED 100 #CELLS
[2022-04-25 15:06] VITALS: BP 108/56
[2022-04-25 15:57] LABS: BILIRUBIN Negative (Negative); BLOOD Negative (Negative); CLARITY Clear (Clear); COLOR Yellow (Yellow); GLUCOSE Negative (Negative); KETONE Negative (Negative); LEUKO ESTERASE Negative (Negative); NITRITE Negative (Negative); UROBILINOGEN 0.2 E.U./dl (0.0-1.0)
[2022-04-25 16:10] LABS: CALCIUM OXALATE CRYSTALS 1+; MUCOUS 1+; RBC 0-2 rbc/hpf (0-2); WBC 0-2 wbc/hpf (0-5)
== END 2022-04-25 16:38 | disposition home or self-care (01) ==
LOC: ED 13:30
PROVIDERS: Emergency Medicine
DX: R42 Dizziness and giddiness (principal); R53.1 Weakness; Z88.8 Allergy status to other drugs, medicaments and biological substances; Z79.899 Other long term (current) drug therapy; Z90.49 Acquired absence of other specified parts of digestive tract; Z90.89 Acquired absence of other organs; Z98.890 Other specified postprocedural states; Z90.710 Acquired absence of both cervix and uterus; Z87.891 Personal history of nicotine dependence